=== PATIENT | female | born 1950 | race Caucasian/White ===

== ENCOUNTER 2017-12-07 10:14 | Inpatient (IN) | payer OTHER, MEDICARE ==
[~2017-12-07] VITALS: Ht 149.9 cm; Wt 78.9 kg
[~2017-12-07 10:14] MED LIST: BYSTOLIC5 M1 PO; CHILDREN'S ASPI81 M1 PO; EFFIENT10 M1 PO; HYDROXYCHLOROQ200 M2 PO; LEVOXYL50 MCG PO; PAXIL10 M1 PO; PRALUENT P75 MG/1 ML INJ; TYLENOL #31 TAB PO
--- NOTE | 2017-12-07 10:25 | ED GI/GU/ABDOMINAL COMPLAINT ---
History of Present Illness General Chief Complaint: General Adult Stated Complaint: BIBA ?GI BLEED Source: patient Exam Limitations: no limitations Vital Signs & Intake/Output Vital Signs & Intake/Output Vital Signs Date Time Temp Pulse Resp B/P B/P Pulse O2 O2 Flow FiO2 Mean Ox Delivery Rate 12/07 1042 90 164/72 12/07 1025 99 Room Air 12/07 1022 98.0 98 18 164/72 99 Room Air Allergies Coded Allergies: Iodinated Contrast- Oral and IV Dye (RASH 12/07/17) atorvastatin (UNKNOWN 12/07/17) celecoxib (UNKNOWN 12/07/17) ciprofloxacin (UNKNOWN 12/07/17) erythromycin base (UNKNOWN 12/07/17) ezetimibe (From ZETIA) (muscle pain 10/01/16) rofecoxib (From VIOXX) (? 06/24/17) sucralfate (UNKNOWN 12/07/17) omeprazole (INTERACTS WITH OTHER MEDS 12/07/17) Uncoded Allergies: BANDAIDS (Intermediate, RASH 06/24/17) Reconcile Medications Alirocumab (Praluent Pen) 75 MG/ML PEN.INJCTR 75 MG INJ Q2W CHOLESTEROL ( Reported) Aspirin (Children's Aspirin) 81 MG TAB.CHEW 1 TAB PO DAILY HEART/BLOOD ( Reported) Augmentin (Augmentin 500-125 Tablet) 500 MG-125 MG TABLET 500 MG PO BID pneumonia . Hydrocortisone 1 % CREAM..G. 1 MG TOP BID PRN skin allergy apply to affected area(s) Hydroxychloroquine Sulfate 200 MG TABLET 2 TAB PO DAILY OA (Reported) Levothyroxine Sodium (Levoxyl) 50 MCG TABLET 1 TAB PO DAILY THYROID (Reported ) Nebivolol HCl (Bystolic) 5 MG TABLET 1 TAB PO DAILY HEART (Reported) Omeprazole 40 MG CAPSULE.DR 1 CAP PO DAILY antacid . Paroxetine HCl 30 MG TABLET 30 MG PO DAILY MENTAL HEALTH (Reported) Triage Nurses Notes Reviewed? yes ? N Is pt currently ? No Onset: Abrupt Duration: hour(s): (FEW) Timing: multiple episodes today Activities at Onset: rest Prior Abdominal Problems: none No Modifying Factors: none Associated Symptoms: fatigue, nausea/vomiting HPI: This is a 67-year-old female with history of coronary disease status post 2 stents on aspirin and Effient, also significant alcohol consumption with 4-5 glasses of wine daily presents from home via EMS for chief complaint of abdominal cramping nausea vomiting and 2 episodes of coffee-ground emesis. She states one happened at around 2:00 this morning and then one around 9 AM. She states they were not large amounts, not friendly bloody but looked like coffee grounds. Abdominal cramping and nausea have since resolved. She thinks she might of eaten some undercooked meats last night. She also had her regular wine at night. No history of peptic ulcer disease esophageal varices. No recent vomiting until today. She last had a colonoscopy approximate 5 years ago which was reported as normal. She gets it done. No family history of colon cancer. She states she just wants to make sure everything is okay. She denies any chest pain or shortness of breath today. She did feel lightheaded earlier. She follows up with Dr. Gen Dudley cardiology and sees Dr. Reinoso her primary care. Past History Travel History Traveled to [place] past 21 day No Medical History Any Pertinent Medical History? see below for history Neurological: NONE EENT: NONE Cardiovascular: hypertension, hyperlipidemia, myocardial infarction Respiratory: NONE Gastrointestinal: NONE Hepatic: NONE Renal: NONE Musculoskeletal: NONE Psychiatric: NONE Endocrine: NONE Blood Disorders: SWEET'S SYNDROME VASCULITIS SLE Cancer(s): NONE Pneumonia Vaccine: 08/24/06 Surgical History Surgical History: appendectomy, hysterectomy, laminectomy, CARDIAC CATH (2011) 2 STENTS, BROKEN ANKLE, THYROGLOSSAL DUCT REMOVAL Psychosocial History What is your primary language Sinhala Tobacco Use: Current Daily Use Daily Tobacco Use Amount/Type: => 5 Cigarettes daily ETOH Use: heavy use (4-5 DRINKS PER DAY) Family History Hx Contributory? No Review of Systems Review of Systems Constitutional: Denies: chills, fever. GI: Reports: abdominal pain, nausea, vomiting. Physical Exam Physical Exam General Appearance: well developed/nourished, alert, awake, mild distress Head: atraumatic, normal appearance Eyes: Bilateral: normal appearance, PERRL, EOMI. Ears, Nose, Throat, Mouth: hearing grossly normal, moist mucous membrane Neck: normal inspection, supple, full range of motion Respiratory: normal breath sounds, chest non-tender, no respiratory distress Cardiovascular: regular rate/rhythm Peripheral Pulses: 2+ radial (R), 2+ radial (L) Gastrointestinal: normal bowel sounds, soft, non-tender Rectal: DARK BROWN OB POSITIVE Back: normal inspection, normal range of motion Extremities: normal range of motion Neurologic/Psych: no motor/sensory deficits, awake, alert, oriented x 3 Skin: intact, normal color, warm/dry Core Measures ACS in differential dx? No Sepsis Present: No Sepsis Focused Exam Completed? No Progress Differential Diagnosis: peptic ulcer, PUD/GERD, GASTRITIS, VARICIES Plan of Care: Orders Procedure Date/time Status Nothing by Mouth 12/07 D Active LACTIC ACID 12/07 1331 Active ED Holding Orders 12/07 1219 Active Admit to inpatient 12/07 1219 Active ED Holding Orders 12/07 1215 Active Vital Signs 12/07 1215 Active Code Status 12/07 1215 Active MISTAKE 12/07 1039 Active TROPONIN LEVEL 12/07 1031 Complete PARTIAL THROMBOPLASTIN TIME 12/07 1031 Complete PROTHROMBIN TIME 12/07 1031 Complete LIPASE 12/07 1031 Complete LACTIC ACID 12/07 1031 Complete ETHANOL 12/07 1031 Complete COMPREHENSIVE METABOLIC PANEL 12/07 1031 Complete CBC WITHOUT DIFFERENTIAL 12/07 1031 Complete TYPE & SCREEN (NOT X-MATCH) 12/07 1031 Complete EKG 12/07 1022 Active Current Medications Sig/Delaney Start time Last Medication Dose Stop Time Status Admin Sodium Chloride 1,000 ML BOLUS ONE 12/07 1200 AC 12/07 (Normal Saline 0.9%) 12/07 1259 1211 Laboratory Tests 12/07/17 1100: Anion Gap 13, Estimated GFR > 60, BUN/Creatinine Ratio 76.7 H, Glucose 159 H, Lactic Acid 1.6, Calcium 8.3 L, Total Bilirubin 0.2, AST 17, ALT 36, Alkaline Phosphatase 46, Troponin I 0.02, Total Protein 5.5 L, Albumin 3.0 L, Globulin 2.5, Albumin/Globulin Ratio 1.2, Lipase 78, PT 13.3 H, INR 1.27 H, APTT 21 L, CBC w Diff NO MAN DIFF REQ, RBC 2.83 L, MCV 96.1, MCH 32.6 H, RDW 13.8, MPV 8.6, Gran % 69.3, Lymphocytes % 19.7 L, Monocytes % 9.0, Eosinophils % 1.7, Basophils % 0.3, Absolute Granulocytes 7.6 H, Absolute Lymphocytes 2.2, Absolute Monocytes 1.0 H, Absolute Eosinophils 0.2, Absolute Basophils 0, PUBS MCHC 33.9, Serum Alcohol < 10.0 POSITIVE ORTHOSTATICS, NO FURTHER BLEEDING IN ED. SHE FELT LIGHTHEADED UPON STANDING. IV PROTONIX, FLUIDS GIVEN. D/W DR ELMORE WHO WILL SEE HER IN CONSULTATION. HOSPITALIST PAGED. Initial ED EKG: NSR, pvc Rhythm Strip: normal sinus rhythm Departure Departure Time of Disposition: 1220 Disposition: STILL A PATIENT Condition: Stable Clinical Impression Primary Impression: GI bleed Secondary Impressions: Anemia Referrals: Kemar FERNANDEZ,Tim Baer (PCP/Family) Toney FERNANDEZ,Gen Jarvis Departure Forms: Customer Survey General Discharge Information Prescriptions: Current Visit Scripts Augmentin (Augmentin 500-125 Tablet) 500 MG PO BID #11 TAB . Omeprazole 1 CAP PO DAILY #30 CAP . Hydrocortisone 1 MG TOP BID PRN skin allergy #30 GM apply to affected area(s) Admission Note Spoke With: Aiden FERNANDEZ,Leyda Documentation of Exam: Documentation of any treatments & extenuating circumstances including Concerns Regarding Discharge (functional status, medication knowledge or non-compliance, living conditions, etc.) that warrant an admission rather than observation: [NPO , IV FLUIDS, PROTONIX IV, GI CONSULT DR ELMORE, HOLD EFFIENT, CIWA MONITORING, POSSIBLE ENDOSCOPY, TRANSFUSE IF NECESSARY]
[2017-12-07 11:16] LABS: ABSOLUTE BASOPHIL COUNT 0 /CUMM (0.0-0.2); ABSOLUTE EOSINOPHIL COUNT 0.2 /CUMM (0.0-0.7); ABSOLUTE GRANULOCYTE CT 7.6 /CUMM (1.4-6.5); ABSOLUTE LYMPH COUNT 2.2 /CUMM (1.2-3.4); BASOPHIL % 0.3 % (0.0-2.0); EOSINOPHIL % 1.7 % (0-5); GRANULOCYTE % 69.3 % (42.2-75.2); HEMATOCRIT 27.2 % (37-47); MEAN CORPUSCULAR HGB 32.6 PG (27.0-31.0); MEAN CORPUSCULAR HGB CONC 33.9 G/DL (33.0-37.0); MEAN CORPUSCULAR VOLUME 96.1 FL (81.0-99.0); MEAN PLATELET VOLUME 8.6 FL (7.4-10.4); PLATELET COUNT 231 /CUMM (130-400); RBC DISTRIBUTION WIDTH 13.8 % (11.5-14.5); RED BLOOD CELL CT 2.83 /CUMM (4.20-5.40)
[2017-12-07 11:24] LABS: PT 13.3 SEC (9.4-12.5); PTT 21 SEC (25-37)
[2017-12-07] MEDS ORDERED: PAROXETINE HCL30 M1 PO (12:27)
--- NOTE | 2017-12-07 13:07 | History & Physical ---
Ana FERNANDEZ,[place] 12/07/17 1307: General Information and HPI MD Statement: I have seen and personally examined NATHANIEL FELIX and documented this H&P. The patient is a 67 year old F who presented with a patient stated chief complaint of [coffee ground emesis]. Source of Information: patient Exam Limitations: no limitations History of Present Illness: This patient is 67-year-old female with history of coronary disease status post 2 stents on aspirin and Effient, hypertension, hyperlipidemia, myocardial infarction, Sweet syndrome vasculitis, and SLE who presents from home via EMS with chief complaint of abdominal cramping,nausea, vomiting and 2 episodes of coffee-ground emesis which occures around 2 AM and around 9 AM this morning. Vomitus were small amounts, and dark colored like coffee grounds. Abdominal cramping and nausea have since resolved. She denies chest pain or shortness of breath, palpitations, or syncope. She did feel lightheaded earlier. She had a normal BM this am that was not bloody. She reports significant alcohol consumption of 4-5 glasses of wine daily. No history of peptic ulcer disease or esophageal varices or previous GI bleed. Her last colonoscopy was approximate 5 years ago which was reported as normal except for hemorrhoids. No family history of colon or gastric cancer. She follows up with Dr. Dudley cardiology and Dr. Reinoso for her primary care. Allergies/Medications Allergies: Coded Allergies: Iodinated Contrast- Oral and IV Dye (RASH 12/07/17) atorvastatin (UNKNOWN 12/07/17) celecoxib (UNKNOWN 12/07/17) ciprofloxacin (UNKNOWN 12/07/17) erythromycin base (UNKNOWN 12/07/17) ezetimibe (From ZETIA) (muscle pain 10/01/16) rofecoxib (From VIOXX) (? 06/24/17) sucralfate (UNKNOWN 12/07/17) omeprazole (INTERACTS WITH OTHER MEDS 12/07/17) Uncoded Allergies: BANDAIDS (Intermediate, RASH 06/24/17) Home Med list Alirocumab (Praluent Pen) 75 MG/ML PEN.INJCTR 75 MG INJ Q2W CHOLESTEROL ( Reported) Aspirin (Children's Aspirin) 81 MG TAB.CHEW 1 TAB PO DAILY HEART/BLOOD ( Reported) Hydroxychloroquine Sulfate 200 MG TABLET 2 TAB PO DAILY OA (Reported) Levothyroxine Sodium (Levoxyl) 50 MCG TABLET 1 TAB PO DAILY THYROID (Reported ) Nebivolol HCl (Bystolic) 5 MG TABLET 1 TAB PO DAILY HEART (Reported) Paroxetine HCl 30 MG TABLET 30 MG PO DAILY MENTAL HEALTH (Reported) Prasugrel HCl (Effient) 10 MG TABLET 1 TAB PO DAILY BLOOD THINNER (Reported) Compliance With Home Meds: GOOD Past History Travel History Traveled to [place] past 21 day No Medical History Neurological: NONE EENT: NONE Cardiovascular: hypertension, hyperlipidemia, myocardial infarction Respiratory: NONE Gastrointestinal: NONE Hepatic: NONE Renal: NONE Musculoskeletal: NONE Psychiatric: NONE Endocrine: NONE Blood Disorders: SWEET'S SYNDROME VASCULITIS SLE Cancer(s): NONE Surgical History Surgical History: appendectomy, hysterectomy, laminectomy, CARDIAC CATH (2004) 2 STENTS BROKEN ANKLE THYROGLOSSAL DUCT REMOVAL Past Family/Social History Psychosocial History ETOH Use: heavy use (4-5 DRINKS PER DAY) Review of Systems Review of Systems Constitutional: Reports: no symptoms. Exam & Diagnostic Data Last 24 Hrs of Vital Signs/I&O Vital Signs Date Time Temp Pulse Resp B/P B/P Pulse O2 O2 Flow FiO2 Mean Ox Delivery Rate 12/07 1541 98.7 94 18 143/59 99 Room Air 12/07 1042 90 164/72 12/07 1025 99 Room Air 12/07 1022 98.0 98 18 164/72 99 Room Air Intake & Output 12/07 1600 12/07 0800 12/07 0000 Intake Total 200 Output Total Balance 200 Intake, IV 200 Patient 173 lb Weight Weight Reported by Patient Measurement Method Physical Exam General Appearance Alert, Oriented X3, Cooperative, No Acute Distress Skin pale Skin Temp/Moisture Exam: Warm/Dry HEENT PERRLA, EOMI, dry mucous membranes Neck Supple, No JVD Lungs Clear to Auscultation, Normal Air Movement Abdomen Normal Bowel Sounds, Soft, No Tenderness Extremities No Edema, Normal Pulses Last 24 Hrs of Labs/Boni: Laboratory Tests 12/07/17 1540: CBC w Diff Pending, WBC Pending, RBC Pending, Hgb Pending, Hct Pending, MCV Pending, MCH Pending, RDW Pending, Plt Count Pending, MPV Pending, PUBS MCHC Pending 12/07/17 1126: Lactic Acid Cancelled 12/07/17 1100: Anion Gap 13, Estimated GFR > 60, BUN/Creatinine Ratio 76.7 H, Glucose 159 H, Lactic Acid 1.6, Calcium 8.3 L, Total Bilirubin 0.2, AST 17, ALT 36, Alkaline Phosphatase 46, Troponin I 0.02, Total Protein 5.5 L, Albumin 3.0 L, Globulin 2.5, Albumin/Globulin Ratio 1.2, Lipase 78, PT 13.3 H, INR 1.27 H, APTT 21 L, CBC w Diff NO MAN DIFF REQ, RBC 2.83 L, MCV 96.1, MCH 32.6 H, RDW 13.8, MPV 8.6, Gran % 69.3, Lymphocytes % 19.7 L, Monocytes % 9.0, Eosinophils % 1.7, Basophils % 0.3, Absolute Granulocytes 7.6 H, Absolute Lymphocytes 2.2, Absolute Monocytes 1.0 H, Absolute Eosinophils 0.2, Absolute Basophils 0, PUBS MCHC 33.9, Serum Alcohol < 10.0 Assessment/Plan Assessment: This patient is 67-year-old female with history of . Coronary artery to on aspirin and Effient, hypertension, hyperlipidemia, myocardial infarction, Sweet syndrome vasculitis, and SLE who presents from home via EMS with chief complaint of abdominal cramping,nausea, vomiting and 2 episodes of coffee-ground emesis which occures around 2 AM and around 9 AM this morning. Vomitus were small amounts, and dark colored like coffee grounds. Abdominal cramping and nausea have since resolved. She denies chest pain or shortness of breath, palpitations , or syncope. Assessment 1. Upper GI bleed-r/o ulcers or varices in the background of anticoagulation with aspirin and effient 2. Coronary artery disease, hyperlipidemia, history of myocardial infarction 3. History of SLE and sweet syndrome Plan Admit to type and screen 2 units of blood maintain 2 large bore IVs at all times IV protonix daily Hold Effient and aspirin Gastroenterology consult-follow recommendations NPO for possible EGD in am IVF hydration with D5 1/2 NS or lactated ringers Check INR/ LFTs Repeat CBC/BEP in am-transfuse if needed Monitor CIWA protocol Follow attending recommendations Alps for DVT ppx FC Mild pain pathway-avoid NSAIDs As Ranked By This Provider Problem List: 1. GI bleed Core Measures/Misc (08/10) Acute Coronary Syndrome ACS Diagnosis: No Congestive Heart Failure Congestive Heart Failure Diagnosis No Cerebrovascular Accident CVA/TIA Diagnosis: No VTE (View Protocol) VTE Risk Factors Acute Medical Illness No Mechanical VTE Prophylaxis d/t N/A MechProphylax Ordered No VTE Pharm Prophylaxis d/t Bleeding (Active) Sepsis (View protocol) Sepsis Present: No Resident Review Statement Resident Statement: examined this patient Other Findings: see hPI Aiden FERNANDEZ,Leyda 12/07/17 1357: Attending MD Review Statement Attending Statement Attending MD Statement: examined this patient, discuss w/resident/PA/SUPERINTENDENT FISH HATCHERY, agreed w/resident/PA/SUPERINTENDENT [employer] HATCH[employer], reviewed EMR data (avail), discussed with nursing, amended to note Attending Assessment/Plan: Patient is a 67-year-old female with medical history significant for coronary artery disease status post stent placement in 2011. She is on dual antiplatelet therapy with aspirin and Effient. She also admits to daily consumption of 4-5 glasses of wine. Patient also gives a history of aortic stenosis and states that she has been worked up for possible valve surgery. She presented to the emergency room after 2 episodes of coffee-ground emesis. First episode upon earlier this morning around 2 AM and the second 1 around 9 AM. She reports that there was no blood present but the emesis was dark in color. Symptoms are preceded by abdominal cramping has since resolved. She denies any similar episodes in the past. She reports having a colonoscopy about 5 years ago and was told that she is due for now. In the emergency room she was found hemodynamically stable with no orthostatic changes although she did complain of some dizziness when being evaluated. Laboratory data showed hemoglobin of 9.2. Comparison hemoglobin is from 2015 I was 13.9 at the time. She had a leukocytosis which is probably reactive. She also has elevated BUN in the 40s with a normal creatinine level. She was then referred to the inpatient medical service for further follicular management. Upon the patient resting comfortably and not in any acute distress. She denies any similar symptoms in the past. Denies history of abdominal pain or cramping. She had no jugular venous distention. Heart sounds are regular with a 3/6 systolic murmur. She has good entry bilaterally and lungs are clear to auscultation. Abdomen is soft and nontender with no epigastric tenderness. She has no peripheral edema. Patient is currently hemodynamically stable.GI bleeding was likely brought her on by her dual antiplatelet therapy and chronic alcohol use. Problems: 1. Query upper GI bleed. 2. Anemia; query chronicity 3. Coronary artery disease status post stent placement; on dual antiplatelet therapy with aspirin and Effient. 4. Aortic stenosis; being evaluated for possible valve surgery. 5. History of significant alcohol use. Plan: -Admit to inpatient General medical service. -Trend hemoglobin level every 8 hours. Transfuse to keep hemoglobin level greater than 8. -Type and screen to PRBCs. Maintain 2 large-bore IV lines. -Check iron studies B12 and folic acid level. -Keep n.p.o. pending GI evaluation. Hydrate with D5 half normal saline at 60 cc an hour. -Hold dual antiplatelet therapy for now. -Intravenous PPI therapy daily. -Notify patient's systems software designer service of her admission to [facility] -DVT prophylaxis with bilateral compression devices. -Given her history of significant alcohol use recommend monitoring closely with CIWA protocol. Hold off benzodiazepine therapy for now.
[2017-12-07 15:58] LABS: ABSOLUTE BASOPHIL COUNT 0 /CUMM (0.0-0.2); ABSOLUTE EOSINOPHIL COUNT 0.1 /CUMM (0.0-0.7); ABSOLUTE GRANULOCYTE CT 9.2 /CUMM (1.4-6.5); ABSOLUTE LYMPH COUNT 2.8 /CUMM (1.2-3.4); ABSOLUTE MONOCYTE COUNT 1.1 /CUMM (0.10-0.60); BASOPHIL % 0.2 % (0.0-2.0); EOSINOPHIL % 0.9 % (0-5); GRANULOCYTE % 69.5 % (42.2-75.2); HEMATOCRIT 25.3 % (37-47); MEAN CORPUSCULAR HGB 32.1 PG (27.0-31.0); MEAN CORPUSCULAR HGB CONC 33.3 G/DL (33.0-37.0); MEAN CORPUSCULAR VOLUME 96.4 FL (81.0-99.0); MEAN PLATELET VOLUME 8.3 FL (7.4-10.4); PLATELET COUNT 217 /CUMM (130-400); RBC DISTRIBUTION WIDTH 13.7 % (11.5-14.5); RED BLOOD CELL CT 2.62 /CUMM (4.20-5.40); WHITE BLOOD CELL COUNT 13.3 /CUMM (4.8-10.8)
[2017-12-07 16:23] VITALS: BP 130/56
--- NOTE | 2017-12-07 16:33 | PN- Gastroenterology ---
Assessment/Plan Assessment/Recommendations: Patient is a 67-year-old lady who had supper about 9 PM last night and then went to bed. She was awoken at 2 AM in the morning with a need to go to the bathroom and while in the bathroom she had a sudden onset of vomiting. On the first emesis she noticed that there was fairly bright and coffee-ground material in the emesis. This recurred one more time. She has not had any additional symptoms such as abdominal pain and lightheadedness fevers chills bright red blood per rectum or melena. She denies any similar episodes in the past. She reports having a colonoscopy about 5 years ago and was told that she is due for now. In the emergency room she was found hemodynamically stable with no orthostatic changes although she did complain of some dizziness when being evaluated. Laboratory data showed hemoglobin of 9.2. Comparison hemoglobin is from 2014 I was 13.9 at the time. She had a leukocytosis which is probably reactive. She also has elevated BUN in the 40s with a normal creatinine level. She was then referred to the inpatient medical service for further follicular management. Patient was seen in ER room 9, and was resting comfortably and not in any acute distress. She denies any similar symptoms in the past. Denies history of abdominal pain or cramping. She had no jugular venous distention. Heart sounds are regular with a 3/6 systolic murmur. She has good entry bilaterally and lungs are clear to auscultation. Abdomen is soft and nontender with no epigastric tenderness. She has no peripheral edema. Patient has a significant alcohol use with 3-5 glasses of wine every night. She has not had any problems related to this alcohol use in the past. Subjective Subjective: No shortness of breath chest pains headache loss of vision presyncope or syncope. Objective Vital Signs and I&Os Vital Signs x Date Time Temp Pulse Resp B/P B/P Pulse O2 O2 Flow FiO2 Mean Ox Delivery Rate 12/07 1623 98.4 100 19 130/56 98 Room Air 12/07 1541 98.7 94 18 143/59 99 Room Air 12/07 1042 90 164/72 12/07 1025 99 Room Air 12/07 1022 98.0 98 18 164/72 99 Room Air Intake & Output 12/07 1600 12/07 0400 12/06 1600 12/06 0400 12/05 1600 12/05 0400 Intake Total 200 Output Total Balance 200 Intake, IV 200 Patient 173 lb Weight Weight Reported by Patient Measurement Method Physical Exam: General Appearance Alert, Oriented X3, Cooperative, No Acute Distress Skin pale Skin Temp/Moisture Exam: Warm/Dry HEENT PERRLA, EOMI, dry mucous membranes Neck Supple, No JVD Lungs Clear to Auscultation, Normal Air Movement Abdomen Normal Bowel Sounds, Soft, No Tenderness Extremities No Edema, Normal Pulses. No asterixis, palmar erythema or spider angiomata. No jaundice or other stigmata of chronic liver disease. Results Pertinent Lab Results: x Laboratory Tests 12/07 12/07 1540 1126 Chemistry Lactic Acid Cancelled Hematology CBC w Diff NO MAN DIFF REQ WBC (4.8 - 10.8 /CUMM) 13.3 H RBC (4.20 - 5.40 /CUMM) 2.62 L Hgb (12.0 - 16.0 G/DL) 8.4 L Hct (37 - 47 %) 25.3 L MCV (81.0 - 99.0 FL) 96.4 MCH (27.0 - 31.0 PG) 32.1 H RDW (11.5 - 14.5 %) 13.7 Plt Count (130 - 400 /CUMM) 217 MPV (7.4 - 10.4 FL) 8.3 Gran % (42.2 - 75.2 %) 69.5 Lymphocytes % (20.5 - 51.1 %) 21.1 Monocytes % (1.7 - 9.3 %) 8.3 Eosinophils % (0 - 5 %) 0.9 Basophils % (0.0 - 2.0 %) 0.2 Absolute Granulocytes (1.4 - 6.5 /CUMM) 9.2 H Absolute Lymphocytes (1.2 - 3.4 /CUMM) 2.8 Absolute Monocytes (0.10 - 0.60 /CUMM) 1.1 H Absolute Eosinophils (0.0 - 0.7 /CUMM) 0.1 Absolute Basophils (0.0 - 0.2 /CUMM) 0 PUBS MCHC (33.0 - 37.0 G/DL) 33.3 12/07 1100 Chemistry Sodium (137 - 145 mmol/L) 143 Potassium (3.5 - 5.1 mmol/L) 4.3 Chloride (98 - 107 mmol/L) 107 Carbon Dioxide (22 - 30 mmol/L) 23 Anion Gap (5 - 16) 13 BUN (7 - 17 mg/dL) 46 H Creatinine (0.5 - 1.0 mg/dL) 0.6 Estimated GFR (>60 ml/min) > 60 BUN/Creatinine Ratio (7 - 25 %) 76.7 H Glucose (65 - 99 mg/dL) 159 H Lactic Acid (0.7 - 2.1 mmol/L) 1.6 Calcium (8.4 - 10.2 mg/dL) 8.3 L Total Bilirubin (0.2 - 1.3 mg/dL) 0.2 AST (14 - 36 U/L) 17 ALT (9 - 52 U/L) 36 Alkaline Phosphatase (<127 U/L) 46 Troponin I (< 0.11 ng/ml) 0.02 Total Protein (6.3 - 8.2 g/dL) 5.5 L Albumin (3.5 - 5.0 g/dL) 3.0 L Globulin (1.9 - 4.2 gm/dL) 2.5 Albumin/Globulin Ratio (1.1 - 2.2 %) 1.2 Lipase (23 - 300 U/L) 78 Coagulation PT (9.4 - 12.5 SEC) 13.3 H INR (0.90 - 1.19) 1.27 H APTT (25 - 37 SEC) 21 L Hematology CBC w Diff NO MAN DIFF REQ WBC (4.8 - 10.8 /CUMM) 11.0 H RBC (4.20 - 5.40 /CUMM) 2.83 L Hgb (12.0 - 16.0 G/DL) 9.2 L Hct (37 - 47 %) 27.2 L MCV (81.0 - 99.0 FL) 96.1 MCH (27.0 - 31.0 PG) 32.6 H RDW (11.5 - 14.5 %) 13.8 Plt Count (130 - 400 /CUMM) 231 MPV (7.4 - 10.4 FL) 8.6 Gran % (42.2 - 75.2 %) 69.3 Lymphocytes % (20.5 - 51.1 %) 19.7 L Monocytes % (1.7 - 9.3 %) 9.0 Eosinophils % (0 - 5 %) 1.7 Basophils % (0.0 - 2.0 %) 0.3 Absolute Granulocytes (1.4 - 6.5 /CUMM) 7.6 H Absolute Lymphocytes (1.2 - 3.4 /CUMM) 2.2 Absolute Monocytes (0.10 - 0.60 /CUMM) 1.0 H Absolute Eosinophils (0.0 - 0.7 /CUMM) 0.2 Absolute Basophils (0.0 - 0.2 /CUMM) 0 PUBS MCHC (33.0 - 37.0 G/DL) 33.9 Toxicology Serum Alcohol (<10 MG/DL) < 10.0 Imaging/Other Studies: In summary we have a 67-year-old lady with significant alcohol intake presenting with a sudden onset of coffee-ground emesis. Her hematocrit has dropped by a little over 10 points compared with 3 years ago. She is hemodynamically stable. Patient states that approximately 5 years ago she had a colonoscopy and upper endoscopy during which exam no significant findings were reported to have. He is were not done at [facility]. Overall patient does not seem to have significant liver disease, and it is highly unlikely that this episode of upper GI bleeding is due to esophageal or gastric variceal bleeding. Please admit to medical floor, nothing by mouth overnight For EGD in the morning. PPI. Hold antiplatelet medications. Repeat hematocrit INR LFTs in the morning.
[2017-12-07 20:00] VITALS: BP 132/62
--- NOTE | 2017-12-07 21:06 | Admission Certification ---
Admission Certification Certification Statement - As attending physician, I certify that at the time of - admission, based on clinical presentation, severity of - symptoms, need for further diagnostic testing and - therapeutic interventions, and risk of adverse outcomes - without in-hospital treatment, in my clinical assessment, - this patient requires an acute hospital stay for a minimum - of two nights or longer. I have also considered psychsocial - factors such as support system, advanced age, financial - issues, cognitive issues, and failed out-patient treatments, - past re-admission history, safety of patient, and lack of - compliance as applicable. Specific rationale supporting this admission is: Hospitalization is required for management of his gastrointestinal bleeding. Patient may require blood transfusion and will certainly require endoscopic evaluation
[2017-12-08] VITALS (8 sets, daily range): BP systolic 120–1338; BP diastolic 54–68
--- NOTE | 2017-12-08 07:53 | PN- Housestaff ---
GeoffreyMayra 12/08/17 0750: Subjective Follow-up For: Upper GI bleed. Anemia CAD s/p Stent on dual antiPlt Aortic stenosis History of significant alcohol use. Subjective: No overnight event. Patient is going for EGD today AM Review of Systems Constitutional: Reports: see HPI. Objective Last 24 Hrs of Vital Signs/I&O Vital Signs Date Time Temp Pulse Resp B/P B/P Pulse O2 O2 Flow FiO2 Mean Ox Delivery Rate 12/08 0408 98.2 95 20 124/54 93 12/08 0200 98.2 100 20 138/62 12/08 0003 98.2 100 20 138/62 93 12/07 2000 98.4 99 18 132/62 94 Room Air 12/07 1623 98.4 100 19 130/56 98 Room Air 12/07 1541 98.7 94 18 143/59 99 Room Air 12/07 1042 90 164/72 12/07 1025 99 Room Air 12/07 1022 98.0 98 18 164/72 99 Room Air Intake & Output 12/08 0800 12/08 0000 12/07 1600 Intake Total 200 Output Total Balance 200 Intake, IV 200 Number 1 Bowel Movements Patient 78.925 kg 78.471 kg Weight Weight Reported by Patient Measurement Method Physical Exam General Appearance: Alert, Oriented X3, Cooperative, No Acute Distress Cardiovascular: Regular Rate Lungs: Clear to Auscultation, Normal Air Movement Abdomen: Normal Bowel Sounds, Soft, No Tenderness Neurological: Normal Speech Extremities: No Edema, Normal Pulses Current Medications: Current Medications Sig/Delaney Start time Last Medication Dose Route Stop Time Status Admin Acetaminophen 650 MG Q6P PRN 12/07 1315 AC 12/08 PO 0002 Dextrose/Sodium 1,000 ML Q16H 12/07 1600 AC 12/07 Chloride IV 1644 Hydromorphone HCl 0.6 MG Q4P PRN 12/07 1500 AC IV Levothyroxine Sodium 0.05 MG DAILY AC 12/08 0700 AC 12/08 PO 0604 Lorazepam 0 Q1P PRN 12/07 1330 DC IV Ondansetron HCl 0 .STK-MED ONE 12/07 1053 DC .ROUTE Pantoprazole Sodium 40 MG DAILY 12/08 1000 AC IV Pantoprazole Sodium 0 .STK-MED ONE 12/07 1053 DC IV Pantoprazole Sodium 40 MG ONCE ONE 12/07 1030 DC 12/07 IV 12/07 1031 1103 Sodium Chloride 1,000 ML .[id number] 12/07 1315 DC 12/07 IV 1449 Sodium Chloride 1,000 ML BOLUS ONE 12/07 1200 DC 12/07 IV 12/07 1259 1211 Sodium Chloride 1,000 ML BOLUS ONE 12/07 1045 DC 12/07 IV 12/07 1144 1103 Last 24 Hrs of Lab/Boni Results Last 24 Hrs of Labs/Mics: Laboratory Tests 12/08/17 0625: Sodium Pending, Potassium Pending, Chloride Pending, Carbon Dioxide Pending, Anion Gap Pending, BUN Pending, Creatinine Pending, BUN/Creatinine Ratio Pending , Iron Pending, Total Bilirubin Pending, Direct Bilirubin Pending, AST Pending, ALT Pending, Alkaline Phosphatase Pending, Total Protein Pending, Albumin Pending, Vitamin B12 Pending, PT Pending, INR Pending, CBC w Diff Pending, WBC Pending, RBC Pending, Hgb Pending, Hct Pending, MCV Pending, MCH Pending, RDW Pending, Plt Count Pending, MPV Pending, PUBS MCHC Pending 12/07/17 1540: CBC w Diff NO MAN DIFF REQ, RBC 2.62 L, MCV 96.4, MCH 32.1 H, RDW 13.7, MPV 8.3, Gran % 69.5, Lymphocytes % 21.1, Monocytes % 8.3, Eosinophils % 0.9, Basophils % 0.2, Absolute Granulocytes 9.2 H, Absolute Lymphocytes 2.8, Absolute Monocytes 1.1 H, Absolute Eosinophils 0.1, Absolute Basophils 0, PUBS MCHC 33.3 12/07/17 1126: Lactic Acid Cancelled 12/07/17 1100: Anion Gap 13, Estimated GFR > 60, BUN/Creatinine Ratio 76.7 H, Glucose 159 H, Lactic Acid 1.6, Calcium 8.3 L, Total Bilirubin 0.2, AST 17, ALT 36, Alkaline Phosphatase 46, Troponin I 0.02, Total Protein 5.5 L, Albumin 3.0 L, Globulin 2.5, Albumin/Globulin Ratio 1.2, Lipase 78, PT 13.3 H, INR 1.27 H, APTT 21 L, CBC w Diff NO MAN DIFF REQ, RBC 2.83 L, MCV 96.1, MCH 32.6 H, RDW 13.8, MPV 8.6, Gran % 69.3, Lymphocytes % 19.7 L, Monocytes % 9.0, Eosinophils % 1.7, Basophils % 0.3, Absolute Granulocytes 7.6 H, Absolute Lymphocytes 2.2, Absolute Monocytes 1.0 H, Absolute Eosinophils 0.2, Absolute Basophils 0, PUBS MCHC 33.9, Serum Alcohol < 10.0 Assessment/Plan Assessment: Ms. Pittman is 67-year-old female with history of Coronary artery to on aspirin and Effient s/p stent placement in 2011, hypertension, hyperlipidemia, myocardial infarction, Sweet syndrome vasculitis, and SLE who presents from home via EMS with chief complaint of abdominal cramping,nausea, vomiting and 2 episodes of coffee-ground emesis. Vomitus were small amounts, and dark colored like coffee grounds. 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 She denied chest pain or shortness of breath, palpitations, or syncope on presentation. However she admitted that she sometimes got chest discomfort/ pressure and addressed it to her vasculitis. Problem list and hospital course: 1. Upper GI bleed-r/o ulcers or varices in the background of anticoagulation with aspirin and effient 2. Coronary artery disease, hyperlipidemia, history of myocardial infarction 3. History of SLE and sweet syndrome - type and screened for prep of 1U PRBC - maintain 2 large bore IVs at all times - IV protonix daily, pending GI scope today - Hold Effient and aspirin, pending cardiology consult. - IVF hydration continued while NPO. - Check INR/ LFTs - Repeat CBC/BEP in am-transfuse if needed - Monitor CIWA protocol Alps for DVT ppx NPO FC Problem List: 1. GI bleed 2. Nausea & vomiting 3. Anemia Pain Ratin Pain Location: NA Pain Goal: Remain pain free Pain Plan: NA Tomorrow's Labs & Rationales: CBC/BEP Renae Garcia 12/08/17 1340: Attending MD Review Statement Attending Statement Attending MD Statement: examined this patient, discuss w/resident/PA/ENTREPRENEURSHIP PROGRAM DIRECTOR, agreed w/resident/PA/ENTREPRENEURSHIP PROGRAM DIRECTOR, discussed with family, reviewed EMR data (avail), discussed with nursing, discussed with case mgmt, reviewed images, amended to note Attending Assessment/Plan: Patient is a 67-year-old female with medical history significant for coronary artery disease status post stent placement in 2011. She is on dual antiplatelet therapy with aspirin and Effient comes with anemia. Labs and vitals seen. Patient is currently hemodynamically stable. GI and cardio consulted. Patient had brief chest discomfort this am. Problems: 1. possible upper GI bleed. 2. Anemia of blood loss 3. Coronary artery disease status post stent placement; on dual antiplatelet therapy with aspirin and Effient. ?timing 4. Aortic stenosis; being evaluated for possible valve surgery. 5. History of significant alcohol use. Plan: -serial cbc monitoring, Hold dual antiplatelet therapy for now. Cardiology consult which recommend to stop effient. Obtain serial cardiac enzymes and EKGs. c/w PPI. -DVT prophylaxis with bilateral compression devices. -Given her history of significant alcohol use recommend monitoring closely with CIWA protocol. Hold off benzodiazepine therapy for now.
[2017-12-08 08:17] LABS: PT 12.8 SEC (9.4-12.5)
[2017-12-08 08:37] LABS: ABSOLUTE BASOPHIL COUNT 0.1 /CUMM (0.0-0.2); ABSOLUTE EOSINOPHIL COUNT 0.4 /CUMM (0.0-0.7); ABSOLUTE GRANULOCYTE CT 7.2 /CUMM (1.4-6.5); ABSOLUTE LYMPH COUNT 2.8 /CUMM (1.2-3.4); ABSOLUTE MONOCYTE COUNT 1.2 /CUMM (0.10-0.60); BASOPHIL % 0.5 % (0.0-2.0); EOSINOPHIL % 3.8 % (0-5); GRANULOCYTE % 61.9 % (42.2-75.2); MEAN CORPUSCULAR HGB 31.8 PG (27.0-31.0); MEAN CORPUSCULAR HGB CONC 32.9 G/DL (33.0-37.0); MEAN CORPUSCULAR VOLUME 96.8 FL (81.0-99.0); MEAN PLATELET VOLUME 8.6 FL (7.4-10.4); PLATELET COUNT 209 /CUMM (130-400); RBC DISTRIBUTION WIDTH 14.1 % (11.5-14.5); RED BLOOD CELL CT 2.28 /CUMM (4.20-5.40); WHITE BLOOD CELL COUNT 11.6 /CUMM (4.8-10.8)
--- NOTE | 2017-12-08 11:45 | Cons- Cardiology ---
General Information and HPI Consulting Request Date of Consult: 12/08/17 Requested By: Renae Garcia MD Reason for Consult: Chest pain, aortic stenosis, GI bleed Source of Information: patient, old records Exam Limitations: no limitations History of Present Illness: The patient is a 67-year-old woman with a past medical history of coronary artery disease (status post remote stenting 2 in 2011), aortic stenosis ( moderate severity), systemic lupus, hypertension, hyperlipidemia and Sweet syndrome vasculitis she presented to our hospital with symptoms of abdominal cramping and emesis of a coffee ground material with noted significant anemia. The patient states symptoms of abdominal discomfort had onset on the day prior to arrival; however, she did not seek immediate medical attention, hoping it would spontaneously resolve. As symptoms persisted and following her episode of emesis, she presented to our emergency room. The patient otherwise denied recent changes in her bowel habits including gross blood nor melena. From a cardiac standpoint, the patient states having chronic and episodic chest discomfort. Over several components to her symptoms, including positional discomfort as well as recurrent episodes of substernal pressure sensations with radiation to the back. These are mild to moderate in intensity and occasionally are reciprocated by physical activity such as carrying objects. There is no concurrent diaphoresis nor palpitations; however, she states dyspnea and fatigue. No other clear exacerbating or alleviating factors are noted. The patient had undergone nuclear stress testing approximately one year ago which demonstrated no evidence of infarct or ischemia., Recent outpatient echocardiography demonstrated moderate aortic stenosis which had progressed over the past year. The patient to undergo endoscopy; however, due to symptoms of chest discomfort was deferred. The patient states compliance with her medication regimen she consumes approximately 4-5 cups of wine per day Allergies/Medications Allergies: Coded Allergies: Iodinated Contrast- Oral and IV Dye (RASH 12/07/17) atorvastatin (UNKNOWN 12/07/17) celecoxib (UNKNOWN 12/07/17) ciprofloxacin (UNKNOWN 12/07/17) erythromycin base (UNKNOWN 12/07/17) ezetimibe (From ZETIA) (muscle pain 10/01/16) rofecoxib (From VIOXX) (? 06/24/17) sucralfate (UNKNOWN 12/07/17) omeprazole (INTERACTS WITH OTHER MEDS 12/07/17) Uncoded Allergies: BANDAIDS (Intermediate, RASH 06/24/17) Home Med List: Alirocumab (Praluent Pen) 75 MG/ML PEN.INJCTR 75 MG INJ Q2W CHOLESTEROL ( Reported) Aspirin (Children's Aspirin) 81 MG TAB.CHEW 1 TAB PO DAILY HEART/BLOOD ( Reported) Hydroxychloroquine Sulfate 200 MG TABLET 2 TAB PO DAILY OA (Reported) Levothyroxine Sodium (Levoxyl) 50 MCG TABLET 1 TAB PO DAILY THYROID (Reported ) Nebivolol HCl (Bystolic) 5 MG TABLET 1 TAB PO DAILY HEART (Reported) Paroxetine HCl 30 MG TABLET 30 MG PO DAILY MENTAL HEALTH (Reported) Prasugrel HCl (Effient) 10 MG TABLET 1 TAB PO DAILY BLOOD THINNER (Reported) Current Medications: Current Medications Sig/Delaney Start time Last Medication Dose Route Stop Time Status Admin Acetaminophen 650 MG Q6P PRN 12/07 1315 AC 12/08 PO 0002 Dextrose/Sodium 1,000 ML Q16H 12/07 1600 AC 12/08 Chloride IV 1115 Hydromorphone HCl 0.6 MG Q4P PRN 12/07 1500 AC IV Levothyroxine Sodium 0.05 MG DAILY AC 12/08 0700 AC 12/08 PO 0604 Lorazepam 0 Q1P PRN 12/07 1330 DC IV Pantoprazole Sodium 40 MG DAILY 12/08 1000 AC 12/08 IV 1114 Sodium Chloride 1,000 ML .[id number] 12/07 1315 DC 12/07 IV 1449 Sodium Chloride 1,000 ML BOLUS ONE 12/07 1200 DC 12/07 IV 12/07 1259 1211 Sodium Chloride 1,000 ML BOLUS ONE 12/07 1045 DC 12/07 IV 12/07 1144 1103 Review of Systems Review of Systems: The review of systems is negative for, palpitations nor lightheadedness; however , is positive for chest pain as above. The remainder of the 14 point review of systems is noncontributory with the exception of above. Past History Travel History Traveled to [place] past 21 day No Medical History Blood Transfusion Hx: No Neurological: NONE EENT: NONE Cardiovascular: hypertension, hyperlipidemia, myocardial infarction Respiratory: NONE Gastrointestinal: NONE Hepatic: NONE Renal: NONE Musculoskeletal: NONE Psychiatric: NONE Endocrine: NONE Blood Disorders: SWEET'S SYNDROME VASCULITIS SLE Cancer(s): NONE OCCUPATIONAL THERAPIST REHAB MANAGER/Reproductive: NONE Surgical History Surgical History: appendectomy, hysterectomy, laminectomy, CARDIAC CATH (2004) 2 STENTS BROKEN ANKLE THYROGLOSSAL DUCT REMOVAL Psychosocial History Where Do You Live? Home Smoking Status: Unknown If Ever Smoked ETOH Use: heavy use (4-5 DRINKS PER DAY) Exam & Diagnostic Data Vital Signs and I&O Vital Signs Date Time Temp Pulse Resp B/P B/P Pulse O2 O2 Flow FiO2 Mean Ox Delivery Rate 12/08 0803 97.9 96 20 120/58 94 Room Air 12/08 0600 98.2 220 64 1308/62 12/08 0408 98.2 95 20 124/54 93 12/08 0200 98.2 100 20 138/62 12/08 0003 98.2 100 20 138/62 93 12/07 2000 98.4 99 18 132/62 94 Room Air 12/07 1623 98.4 100 19 130/56 98 Room Air 12/07 1541 98.7 94 18 143/59 99 Room Air Intake & Output 12/08 1600 12/08 0800 12/08 0000 12/07 1600 12/07 0800 12/07 0000 Intake Total 450 200 Output Total Balance 450 200 Intake, IV 430 200 Intake, Oral 20 Number 1 Bowel Movements Patient 174 lb 174 lb 173 lb Weight Weight Reported by Patient Measurement Method Physical Exam: General: Nontoxic, no apparent distress. HEENT: Sclera and conjunctiva within normal limits, without xanthelasmas. Neck: Carotids 2+ without bruits. Respiratory: Clear to auscultation, air movement is good, without accessory respiratory muscle use. Heart: Regular rate and rhythm, without murmurs, without JVD. Abdomen: Soft, nontender, no masses, normoactive bowel sounds. Extremities: Without clubbing, cyanosis, without edema. Neuro: Nonfocal exam, strength, 5 out of 5 Skin: Within normal limits without lesions. Psych: Mood and affect: Normal Labs/Boni Results: Laboratory Tests 12/08 12/07 0625 1540 Chemistry Sodium (137 - 145 mmol/L) 147 H Potassium (3.5 - 5.1 mmol/L) 3.7 Chloride (98 - 107 mmol/L) 111 H Carbon Dioxide (22 - 30 mmol/L) 23 Anion Gap (5 - 16) 13 BUN (7 - 17 mg/dL) 22 H Creatinine (0.5 - 1.0 mg/dL) 0.6 Estimated GFR (>60 ml/min) > 60 BUN/Creatinine Ratio (7 - 25 %) 36.7 H Iron (37 - 170 ug/dL) 186 H Total Bilirubin (0.2 - 1.3 mg/dL) < 0.1 L Direct Bilirubin (< 0.4 mg/dL) 0 AST (14 - 36 U/L) 18 ALT (9 - 52 U/L) 35 Alkaline Phosphatase (<127 U/L) 42 Troponin I (< 0.11 ng/ml) 0.03 Total Protein (6.3 - 8.2 g/dL) 5.1 L Albumin (3.5 - 5.0 g/dL) 2.8 L Vitamin B12 (239 - 931 pg/mL) 599 Coagulation PT (9.4 - 12.5 SEC) 12.8 H INR (0.90 - 1.19) 1.22 H Hematology CBC w Diff NO MAN DIFF REQ NO MAN DIFF REQ WBC (4.8 - 10.8 /CUMM) 11.6 H 13.3 H RBC (4.20 - 5.40 /CUMM) 2.28 L 2.62 L Hgb (12.0 - 16.0 G/DL) 7.3 *L 8.4 L Hct (37 - 47 %) 22.0 L 25.3 L MCV (81.0 - 99.0 FL) 96.8 96.4 MCH (27.0 - 31.0 PG) 31.8 H 32.1 H RDW (11.5 - 14.5 %) 14.1 13.7 Plt Count (130 - 400 /CUMM) 209 217 MPV (7.4 - 10.4 FL) 8.6 8.3 Gran % (42.2 - 75.2 %) 61.9 69.5 Lymphocytes % (20.5 - 51.1 %) 23.8 21.1 Monocytes % (1.7 - 9.3 %) 10.0 H 8.3 Eosinophils % (0 - 5 %) 3.8 0.9 Basophils % (0.0 - 2.0 %) 0.5 0.2 Absolute Granulocytes (1.4 - 6.5 /CUMM) 7.2 H 9.2 H Absolute Lymphocytes (1.2 - 3.4 /CUMM) 2.8 2.8 Absolute Monocytes (0.10 - 0.60 /CUMM) 1.2 H 1.1 H Absolute Eosinophils (0.0 - 0.7 /CUMM) 0.4 0.1 Absolute Basophils (0.0 - 0.2 /CUMM) 0.1 0 PUBS MCHC (33.0 - 37.0 G/DL) 32.9 L 33.3 12/07 12/07 1126 1100 Chemistry Sodium (137 - 145 mmol/L) 143 Potassium (3.5 - 5.1 mmol/L) 4.3 Chloride (98 - 107 mmol/L) 107 Carbon Dioxide (22 - 30 mmol/L) 23 Anion Gap (5 - 16) 13 BUN (7 - 17 mg/dL) 46 H Creatinine (0.5 - 1.0 mg/dL) 0.6 Estimated GFR (>60 ml/min) > 60 BUN/Creatinine Ratio (7 - 25 %) 76.7 H Glucose (65 - 99 mg/dL) 159 H Lactic Acid (0.7 - 2.1 mmol/L) Cancelled 1.6 Calcium (8.4 - 10.2 mg/dL) 8.3 L Total Bilirubin (0.2 - 1.3 mg/dL) 0.2 AST (14 - 36 U/L) 17 ALT (9 - 52 U/L) 36 Alkaline Phosphatase (<127 U/L) 46 Troponin I (< 0.11 ng/ml) 0.02 Total Protein (6.3 - 8.2 g/dL) 5.5 L Albumin (3.5 - 5.0 g/dL) 3.0 L Globulin (1.9 - 4.2 gm/dL) 2.5 Albumin/Globulin Ratio (1.1 - 2.2 %) 1.2 Lipase (23 - 300 U/L) 78 Coagulation PT (9.4 - 12.5 SEC) 13.3 H INR (0.90 - 1.19) 1.27 H APTT (25 - 37 SEC) 21 L Hematology CBC w Diff NO MAN DIFF REQ WBC (4.8 - 10.8 /CUMM) 11.0 H RBC (4.20 - 5.40 /CUMM) 2.83 L Hgb (12.0 - 16.0 G/DL) 9.2 L Hct (37 - 47 %) 27.2 L MCV (81.0 - 99.0 FL) 96.1 MCH (27.0 - 31.0 PG) 32.6 H RDW (11.5 - 14.5 %) 13.8 Plt Count (130 - 400 /CUMM) 231 MPV (7.4 - 10.4 FL) 8.6 Gran % (42.2 - 75.2 %) 69.3 Lymphocytes % (20.5 - 51.1 %) 19.7 L Monocytes % (1.7 - 9.3 %) 9.0 Eosinophils % (0 - 5 %) 1.7 Basophils % (0.0 - 2.0 %) 0.3 Absolute Granulocytes (1.4 - 6.5 /CUMM) 7.6 H Absolute Lymphocytes (1.2 - 3.4 /CUMM) 2.2 Absolute Monocytes (0.10 - 0.60 /CUMM) 1.0 H Absolute Eosinophils (0.0 - 0.7 /CUMM) 0.2 Absolute Basophils (0.0 - 0.2 /CUMM) 0 PUBS MCHC (33.0 - 37.0 G/DL) 33.9 Toxicology Serum Alcohol (<10 MG/DL) < 10.0 Assessment/Plan Assessment/Plan 67-year-old woman with a past medical history of coronary artery disease (status post remote stenting 2 in 2011), aortic stenosis (moderate severity), systemic lupus, hypertension, hyperlipidemia and Sweet syndrome vasculitis she presented to our hospital with symptoms of abdominal cramping and emesis of a coffee ground material with noted significant anemia. She has had symptoms of chest discomfort during her hospitalization. Anemia: The patient presents with anemia likely of a GI source, in the context of dual antiplatelet therapy as well as significant alcohol consumption. I would hold her regimen of aspirin and Effient. Her symptoms of chest discomfort have been recurrent has had negative stress testing in the past for this. There is a possible GI etiology to her symptoms as well as a history of mild pericarditis, her symptoms are not typical for pericarditis. An EKG will be obtained to exclude significant ischemia as etiology for her symptoms, and we will check a troponin isoenzyme. If the EKG demonstrates no acute changes, given the need for her GI procedure, I would proceed with the same. Aspirin should as well be restarted after cleared from a GI standpoint. In the timing of her stenting, dual antiplatelet therapy will be discontinued (Effient) . Coronary artery disease: The patient has known coronary artery disease with remote stenting several years ago. We will discontinue dual antiplatelet therapy and maintain aspirin only. She has had an outpatient nuclear stress testing which demonstrated no evidence of infarct or ischemia. After resolution of her anemia, we may consider repeating the same as an outpatient. Her symptoms of chest discomfort are multifactorial and recurrent Aortic stenosis: Moderate by recent testing. This will be followed up as an outpatient. Thank you for allowing us to participate in the care of your patient. Please do not hesitate to contact us further with any questions. Sincerely, Huber Rush MD [facility] Consult Acknowledgment - Thank you for your consult request.
--- NOTE | 2017-12-08 15:20 | Proc Note Endoscopy ---
Endoscopy Procedure Procedure Date: 12/08/17 Procedure Type: EGD w/biopsy Pool Finisher: Torin Nolen M.D. ASA Classification: IV Indications: Hematemesis Blood loss anemia Instrument: diagnostic gastroscope Meds Received: MAC (O2 mask) Patient's Tolerance: good Complications: none Extent Reached: second part of duodenum Procedure: The patient signed informed consent, and was medicated. Lidocaine pharyngeal spray was administered. Pulse oximetry, blood pressure and cardiac monitoring were performed continuously throughout the procedure. The Olympus high- definition gastroscope was inserted into the mouth and advanced to the duodenum. Retroflexion was performed within the stomach to examine the cardia. Careful examination was performed. Findings: The esophagus had normal caliber and contour. There were no varices. The mucosa was intact throughout. The GE junction at 35 cm was normal. A small hiatal hernia. At the GE junction was a small area of erythema with central exudate, consistent with Clemencia-Bryant tear (versus erosion). The stomach had normal distention and active peristalsis. There was no fresh nor old blood within the gastric cavity. The cardia was normal except as above. Mucosa and folds of the fundus, and body were normal. Just distal to the incisura was a long/narrow and shallow ulceration, with clean base. 2 biopsies were obtained from this area. The antrum was otherwise normal. Biopsies were obtained from body, incisura and antrum. The pyloric channel was normal. There was no blood within the duodenum. The duodenal bulb was normal without erosion or ulceration. At the apex of the bulb with subcentimeter nodular polyp , which was biopsied twice. The mucosa and folds of the duodenal sweep were normal. Impression: * Small Clemencia-Bryant tear * Linear/shallow gastric ulceration * Duodenal polyp Recommendations: * Await pathology * Continue aspirin, but hold Effient for now (coronary stents 5 years ago), pending cardiology evaluation * PPI by mouth twice a day * Regular diet * Follow-up CBC tonight and in the morning. Maintain hemoglobin greater than 8. * Cardiology consultation given chest pain CC: Kemar FERNANDEZ,Tim Baer; Toney FERNANDEZ,Gen Jarvis
[2017-12-08 19:54] LABS: ABSOLUTE BASOPHIL COUNT 0 /CUMM (0.0-0.2); ABSOLUTE EOSINOPHIL COUNT 0.4 /CUMM (0.0-0.7); ABSOLUTE GRANULOCYTE CT 9.8 /CUMM (1.4-6.5); ABSOLUTE LYMPH COUNT 2.6 /CUMM (1.2-3.4); ABSOLUTE MONOCYTE COUNT 1.6 /CUMM (0.10-0.60); BASOPHIL % 0.3 % (0.0-2.0); EOSINOPHIL % 2.7 % (0-5); GRANULOCYTE % 67.9 % (42.2-75.2); HEMATOCRIT 25.4 % (37-47); MEAN CORPUSCULAR HGB 31.9 PG (27.0-31.0); MEAN CORPUSCULAR HGB CONC 34.2 G/DL (33.0-37.0); MEAN CORPUSCULAR VOLUME 93.2 FL (81.0-99.0); MEAN PLATELET VOLUME 8.4 FL (7.4-10.4); PLATELET COUNT 201 /CUMM (130-400); RBC DISTRIBUTION WIDTH 16.5 % (11.5-14.5); RED BLOOD CELL CT 2.73 /CUMM (4.20-5.40); WHITE BLOOD CELL COUNT 14.4 /CUMM (4.8-10.8)
--- NOTE | 2017-12-09 05:18 | Event Note ---
Event Note Event Note: Patient was having left sided Chest Pain, lasting 5-10 minutes, radiating to the left and resolved on its own. Patient had similar chest pain this morning EKG and troponins were done, which were negative. Denies any associated shortness of breath or palpitations. Patient currently denies any chest pain. Normal S1- S2 and Lungs clear to auscultation. VSS. Patient was transferred to telemetry floor for close monitoring and another set of Troponins and EKG were ordered, with troponins of 0.03(no change since morning) and EKG showing sinus tachycardia with a heart rate of [address]-T wave changes.
[2017-12-09 06:35] VITALS: BP 120/54
--- NOTE | 2017-12-09 07:00 | PN- Housestaff ---
See Addendum Subjective Follow-up For: GI bleed, chest pain Complaints: no complaints Tele-Events Since Last Visit: Normal sinus rhythm. Heart rate 70 Subjective: I saw the patient along with a resident at bedside. She was lying comfortably in her bed. She offers no complaints. She says she slept well overnight. She denies chest pain, shortness of breath, vomiting, nausea, hematuria, abdominal pain. Patient had EGDs with biopsy done yesterday. She urinated well after the procedure. She complains of constipation for the past 2-3 days. Review of Systems Constitutional: Reports: no symptoms. Cardiovascular: Reports: no symptoms. Respiratory: Reports: no symptoms. Gastrointestinal: Reports: constipation. Genitourinary: Reports: no symptoms. Musculoskeletal: Reports: no symptoms. Neurological/Psychological: Reports: no symptoms. Objective Last 24 Hrs of Vital Signs/I&O Vital Signs Date Time Temp Pulse Resp B/P B/P Pulse O2 O2 Flow FiO2 Mean Ox Delivery Rate 12/09 0635 97.9 101 20 120/54 92 Room Air 12/08 2155 98.2 95 20 164/68 96 12/08 1612 98.5 90 18 132/68 95 Room Air 12/08 1200 98.3 90 18 130/64 96 Room Air Intake & Output 12/09 1600 12/09 0800 12/09 0000 Intake Total 200 Output Total Balance 200 Intake, Oral 200 Physical Exam General Appearance: Alert, Oriented X3, Cooperative, No Acute Distress Skin: No Rashes HEENT: Atraumatic, Mucous Membr. moist/pink Neck: Supple, No JVD Cardiovascular: Regular Rate, Normal S1, Normal S2, systolic murmur. Lungs: Clear to Auscultation Abdomen: Soft, No Masses, bowel sounds heard. Neurological: Normal Speech, Strength at 5/5 X4 Ext Extremities: No Edema Current Medications: Current Medications Sig/Delaney Start time Last Medication Dose Route Stop Time Status Admin Acetaminophen 650 MG .STK-MED ONE 12/08 1233 DC PO 12/08 1234 Acetaminophen 650 MG Q6P PRN 12/07 1315 AC 12/08 PO 1237 Aspirin 81 MG DAILY 12/08 1607 DC 12/08 PO 1752 Dextrose/Sodium 1,000 ML Q16H 12/07 1600 DC 12/08 Chloride IV 1115 Docusate Sodium 100 MG DAILY 12/09 1000 AC PO Hydromorphone HCl 0.6 MG Q4P PRN 12/07 1500 AC IV Levothyroxine Sodium 0.05 MG DAILY AC 12/08 0700 AC 12/09 PO 0611 Lidocaine 2 MG .STK-MED ONE 12/08 1520 [facility] 12/08 1521 Omeprazole 40 MG BID 12/08 2200 AC 12/08 PO 2139 Pantoprazole Sodium 40 MG DAILY 12/08 1000 DC 12/08 IV 1114 Patient Medication 1 ED ONE ONE 12/08 1315 HI Teaching ED 12/08 1316 Polyethylene Glycol 17 GM DAILY 12/09 1000 AC PO Last 24 Hrs of Lab/Boni Results Last 24 Hrs of Labs/Mics: Laboratory Tests 12/09/17 0835: CBC w Diff Pending, WBC Pending, RBC Pending, Hgb Pending, Hct Pending, MCV Pending, MCH Pending, RDW Pending, Plt Count Pending, MPV Pending, PUBS MCHC Pending 12/09/17 0615: Troponin I 0.10 12/08/17 2000: Troponin I Cancelled 12/08/17 2000: Troponin I Cancelled 12/08/17 1852: Troponin I 0.03, CBC w Diff NO MAN DIFF REQ, RBC 2.73 L, MCV 93.2, MCH 31.9 H, RDW 16.5 H, MPV 8.4, Gran % 67.9, Lymphocytes % 18.2 L, Monocytes % 10.9 H, Eosinophils % 2.7, Basophils % 0.3, Absolute Granulocytes 9.8 H, Absolute Lymphocytes 2.6, Absolute Monocytes 1.6 H, Absolute Eosinophils 0.4, Absolute Basophils 0, PUBS MCHC 34.2 12/08/17 1500: Troponin I Cancelled Assessment/Plan Assessment: Ms. Pittman is 67-year-old female with history of Coronary artery to on aspirin and Effient s/p stent placement in 2011, hypertension, hyperlipidemia, myocardial infarction, Sweet syndrome vasculitis, and SLE who presents from home via EMS with chief complaint of abdominal cramping,nausea, vomiting and 2 episodes of coffee-ground emesis. Vomitus were small amounts, and dark colored like coffee grounds. 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 She denied chest pain or shortness of breath, palpitations, or syncope on presentation. However she admitted that she sometimes got chest discomfort/ pressure and addressed it to her vasculitis. Problem list: 1. Upper GI bleed-r/o ulcers or varices in the background of anticoagulation with aspirin and effient 2. Coronary artery disease, hyperlipidemia, history of myocardial infarction 3. History of SLE and sweet syndrome * Patient was given 1 unit of blood transfusion yesterday. Awaiting C BC report today. Patient had a EGD scope. With biopsy which showed small Clemencia Vane tear with gastric ulceration and duodenal polyp. Appreciate GI follow-up. * Patient Effient was discontinued as per cardiology. Her aspirin was started today. * Keep hemoglobin more than 8. * We will do chest x-ray, CBC, BMP, urine analysis. * Cardiology follow-up appreciated. * maintain 2 large bore IVs at all times * IV protonix daily Alps for DVT ppx regular diet FC Problem List: 1. GI bleed Pain Ratin Pain Location: none Pain Goal: Remain pain free Pain Plan: tylenol Tomorrow's Labs & Rationales: cbc,bep
[2017-12-09 10:33] LABS: ABSOLUTE BASOPHIL COUNT 0.1 /CUMM (0.0-0.2); ABSOLUTE EOSINOPHIL COUNT 0.5 /CUMM (0.0-0.7); ABSOLUTE GRANULOCYTE CT 9.5 /CUMM (1.4-6.5); ABSOLUTE MONOCYTE COUNT 1.5 /CUMM (0.10-0.60); BASOPHIL % 0.4 % (0.0-2.0); EOSINOPHIL % 3.6 % (0-5); GRANULOCYTE % 65.3 % (42.2-75.2); HEMATOCRIT 24.9 % (37-47); MEAN CORPUSCULAR HGB CONC 33.8 G/DL (33.0-37.0); MEAN CORPUSCULAR VOLUME 94.5 FL (81.0-99.0); MEAN PLATELET VOLUME 8.6 FL (7.4-10.4); PLATELET COUNT 210 /CUMM (130-400); RBC DISTRIBUTION WIDTH 16.2 % (11.5-14.5); RED BLOOD CELL CT 2.64 /CUMM (4.20-5.40); WHITE BLOOD CELL COUNT 14.6 /CUMM (4.8-10.8)
--- NOTE | 2017-12-09 13:38 | RADIOLOGY REPORT ---
EXAMINATION: XR CHEST CLINICAL INFORMATION: Chest pain. COMPARISON: None TECHNIQUE: 2 views of the chest were obtained. FINDINGS: Triangular nonspecific airspace opacity is noted at right lower lobe of the lung anteromedially, in the appropriate clinical background, may represent pneumonia. Follow-up radiograph to document resolution is recommended. The remainder of the lungs bilaterally appear clear. There is no pleural effusion present. The visualized upper abdomen is unremarkable. Multilevel degenerative spondylosis is seen in the spine. IMPRESSION: Nonspecific triangular opacity at right lower lobe of the lung anteromedially, in the appropriate clinical setting, may represent pneumonia. Follow-up radiograph to document resolution is recommended.
[2017-12-09 14:07] VITALS: BP 124/58
--- NOTE | 2017-12-09 14:47 | PN- Gastroenterology ---
Assessment/Plan Assessment/Recommendations: Hematemesis, blood loss anemia. Stable without evidence of rebleeding. Hematocrit stable. Small gastric ulcer, with biopsies pending. Atypical chest pain. Recommendations: * Await pathology * Continue aspirin, but hold Effient * Continue PPI by mouth twice a day * Continue Regular diet * Follow-up CBC tomorrow morning. Maintain hemoglobin greater than 8. If discharged soon, will follow up in our office in 1-2 weeks Subjective Subjective: Postprandial chest pain radiating to the left arm yesterday, although has not recurred today and has tolerated breakfast and lunch. No nausea or vomiting. No abdominal pain. No bowel movements, including melena and blood per rectum. Objective Vital Signs and I&Os Vital Signs Date Time Temp Pulse Resp B/P B/P Pulse O2 O2 Flow FiO2 Mean Ox Delivery Rate 12/09 1407 98.4 96 18 124/58 98 Room Air 12/09 0635 97.9 101 20 120/54 92 Room Air 12/08 2155 98.2 95 20 164/68 96 12/08 1612 98.5 90 18 132/68 95 Room Air Intake & Output 12/09 1600 12/09 0400 12/08 1600 12/08 0400 12/07 1600 12/07 0400 Intake Total 200 810 200 Output Total 400 Balance 200 410 200 Intake, IV 790 200 Intake, Oral 200 20 Number 1 Bowel Movements Output, Urine 400 Patient 174 lb 174 lb 173 lb Weight Weight Reported by Patient Measurement Method Physical Exam: Sclera anicteric. Abdomen soft and nontender. Current Medications: Current Medications Sig/Delaney Start time Last Medication Dose Route Stop Time Status Admin Acetaminophen 650 MG Q6P PRN 12/07 1315 AC 12/08 PO 1237 Aspirin 81 MG DAILY 12/09 1000 AC 12/09 PO 1047 Aspirin 81 MG DAILY 12/08 1607 DC 12/08 PO 1752 Dextrose/Sodium 1,000 ML Q16H 12/07 1600 DC 12/08 Chloride IV 1115 Docusate Sodium 100 MG DAILY 12/09 1000 AC 12/09 PO 0907 Hydromorphone HCl 0.6 MG Q4P PRN 12/07 1500 AC IV Levothyroxine Sodium 0.05 MG DAILY AC 12/08 0700 AC 12/09 PO 0611 Lidocaine 2 MG .STK-MED ONE 12/08 1520 [facility] 12/08 1521 Omeprazole 40 MG BID 12/08 2200 AC 12/09 PO 0907 Pantoprazole Sodium 40 MG DAILY 12/08 1000 DC 12/08 IV 1114 Polyethylene Glycol 17 GM DAILY 12/09 1000 AC 12/09 PO 0907 Results Pertinent Lab Results: Laboratory Tests 12/09 12/09 12/09 1000 0835 0615 Chemistry Sodium Cancelled Potassium Cancelled Chloride Cancelled Carbon Dioxide Cancelled Anion Gap Cancelled BUN Cancelled Creatinine Cancelled BUN/Creatinine Ratio Cancelled Troponin I (< 0.11 ng/ml) 0.10 Hematology CBC w Diff NO MAN DIFF REQ WBC (4.8 - 10.8 /CUMM) 14.6 H RBC (4.20 - 5.40 /CUMM) 2.64 L Hgb (12.0 - 16.0 G/DL) 8.4 L Hct (37 - 47 %) 24.9 L MCV (81.0 - 99.0 FL) 94.5 MCH (27.0 - 31.0 PG) 32.0 H RDW (11.5 - 14.5 %) 16.2 H Plt Count (130 - 400 /CUMM) 210 MPV (7.4 - 10.4 FL) 8.6 Gran % (42.2 - 75.2 %) 65.3 Lymphocytes % (20.5 - 51.1 %) 20.3 L Monocytes % (1.7 - 9.3 %) 10.4 H Eosinophils % (0 - 5 %) 3.6 Basophils % (0.0 - 2.0 %) 0.4 Absolute Granulocytes (1.4 - 6.5 /CUMM) 9.5 H Absolute Lymphocytes (1.2 - 3.4 /CUMM) 3.0 Absolute Monocytes (0.10 - 0.60 /CUMM) 1.5 H Absolute Eosinophils (0.0 - 0.7 /CUMM) 0.5 Absolute Basophils (0.0 - 0.2 /CUMM) 0.1 PUBS MCHC (33.0 - 37.0 G/DL) 33.8 12/08 Chemistry Troponin I (< 0.11 ng/ml) Cancelled Cancelled 0.03 Hematology CBC w Diff NO MAN DIFF REQ WBC (4.8 - 10.8 /CUMM) 14.4 H RBC (4.20 - 5.40 /CUMM) 2.73 L Hgb (12.0 - 16.0 G/DL) 8.7 L Hct (37 - 47 %) 25.4 L MCV (81.0 - 99.0 FL) 93.2 MCH (27.0 - 31.0 PG) 31.9 H RDW (11.5 - 14.5 %) 16.5 H Plt Count (130 - 400 /CUMM) 201 MPV (7.4 - 10.4 FL) 8.4 Gran % (42.2 - 75.2 %) 67.9 Lymphocytes % (20.5 - 51.1 %) 18.2 L Monocytes % (1.7 - 9.3 %) 10.9 H Eosinophils % (0 - 5 %) 2.7 Basophils % (0.0 - 2.0 %) 0.3 Absolute Granulocytes (1.4 - 6.5 /CUMM) 9.8 H Absolute Lymphocytes (1.2 - 3.4 /CUMM) 2.6 Absolute Monocytes (0.10 - 0.60 /CUMM) 1.6 H Absolute Eosinophils (0.0 - 0.7 /CUMM) 0.4 Absolute Basophils (0.0 - 0.2 /CUMM) 0 PUBS MCHC (33.0 - 37.0 G/DL) 34.2 12/08 12/08 1500 0625 Chemistry Sodium (137 - 145 mmol/L) 147 H Potassium (3.5 - 5.1 mmol/L) 3.7 Chloride (98 - 107 mmol/L) 111 H Carbon Dioxide (22 - 30 mmol/L) 23 Anion Gap (5 - 16) 13 BUN (7 - 17 mg/dL) 22 H Creatinine (0.5 - 1.0 mg/dL) 0.6 Estimated GFR (>60 ml/min) > 60 BUN/Creatinine Ratio (7 - 25 %) 36.7 H Iron (37 - 170 ug/dL) 186 H Total Bilirubin (0.2 - 1.3 mg/dL) < 0.1 L Direct Bilirubin (< 0.4 mg/dL) 0 AST (14 - 36 U/L) 18 ALT (9 - 52 U/L) 35 Alkaline Phosphatase (<127 U/L) 42 Troponin I (< 0.11 ng/ml) Cancelled 0.03 Total Protein (6.3 - 8.2 g/dL) 5.1 L Albumin (3.5 - 5.0 g/dL) 2.8 L Vitamin B12 (239 - 931 pg/mL) 599 Coagulation PT (9.4 - 12.5 SEC) 12.8 H INR (0.90 - 1.19) 1.22 H Hematology CBC w Diff NO MAN DIFF REQ WBC (4.8 - 10.8 /CUMM) 11.6 H RBC (4.20 - 5.40 /CUMM) 2.28 L Hgb (12.0 - 16.0 G/DL) 7.3 *L Hct (37 - 47 %) 22.0 L MCV (81.0 - 99.0 FL) 96.8 MCH (27.0 - 31.0 PG) 31.8 H RDW (11.5 - 14.5 %) 14.1 Plt Count (130 - 400 /CUMM) 209 MPV (7.4 - 10.4 FL) 8.6 Gran % (42.2 - 75.2 %) 61.9 Lymphocytes % (20.5 - 51.1 %) 23.8 Monocytes % (1.7 - 9.3 %) 10.0 H Eosinophils % (0 - 5 %) 3.8 Basophils % (0.0 - 2.0 %) 0.5 Absolute Granulocytes (1.4 - 6.5 /CUMM) 7.2 H Absolute Lymphocytes (1.2 - 3.4 /CUMM) 2.8 Absolute Monocytes (0.10 - 0.60 /CUMM) 1.2 H Absolute Eosinophils (0.0 - 0.7 /CUMM) 0.4 Absolute Basophils (0.0 - 0.2 /CUMM) 0.1 PUBS MCHC (33.0 - 37.0 G/DL) 32.9 L 12/07 12/07 1540 1126 Chemistry Lactic Acid Cancelled Hematology CBC w Diff NO MAN DIFF REQ WBC (4.8 - 10.8 /CUMM) 13.3 H RBC (4.20 - 5.40 /CUMM) 2.62 L Hgb (12.0 - 16.0 G/DL) 8.4 L Hct (37 - 47 %) 25.3 L MCV (81.0 - 99.0 FL) 96.4 MCH (27.0 - 31.0 PG) 32.1 H RDW (11.5 - 14.5 %) 13.7 Plt Count (130 - 400 /CUMM) 217 MPV (7.4 - 10.4 FL) 8.3 Gran % (42.2 - 75.2 %) 69.5 Lymphocytes % (20.5 - 51.1 %) 21.1 Monocytes % (1.7 - 9.3 %) 8.3 Eosinophils % (0 - 5 %) 0.9 Basophils % (0.0 - 2.0 %) 0.2 Absolute Granulocytes (1.4 - 6.5 /CUMM) 9.2 H Absolute Lymphocytes (1.2 - 3.4 /CUMM) 2.8 Absolute Monocytes (0.10 - 0.60 /CUMM) 1.1 H Absolute Eosinophils (0.0 - 0.7 /CUMM) 0.1 Absolute Basophils (0.0 - 0.2 /CUMM) 0 PUBS MCHC (33.0 - 37.0 G/DL) 33.3 12/07 1100 Chemistry Sodium (137 - 145 mmol/L) 143 Potassium (3.5 - 5.1 mmol/L) 4.3 Chloride (98 - 107 mmol/L) 107 Carbon Dioxide (22 - 30 mmol/L) 23 Anion Gap (5 - 16) 13 BUN (7 - 17 mg/dL) 46 H Creatinine (0.5 - 1.0 mg/dL) 0.6 Estimated GFR (>60 ml/min) > 60 BUN/Creatinine Ratio (7 - 25 %) 76.7 H Glucose (65 - 99 mg/dL) 159 H Lactic Acid (0.7 - 2.1 mmol/L) 1.6 Calcium (8.4 - 10.2 mg/dL) 8.3 L Total Bilirubin (0.2 - 1.3 mg/dL) 0.2 AST (14 - 36 U/L) 17 ALT (9 - 52 U/L) 36 Alkaline Phosphatase (<127 U/L) 46 Troponin I (< 0.11 ng/ml) 0.02 Total Protein (6.3 - 8.2 g/dL) 5.5 L Albumin (3.5 - 5.0 g/dL) 3.0 L Globulin (1.9 - 4.2 gm/dL) 2.5 Albumin/Globulin Ratio (1.1 - 2.2 %) 1.2 Lipase (23 - 300 U/L) 78 Coagulation PT (9.4 - 12.5 SEC) 13.3 H INR (0.90 - 1.19) 1.27 H APTT (25 - 37 SEC) 21 L Hematology CBC w Diff NO MAN DIFF REQ WBC (4.8 - 10.8 /CUMM) 11.0 H RBC (4.20 - 5.40 /CUMM) 2.83 L Hgb (12.0 - 16.0 G/DL) 9.2 L Hct (37 - 47 %) 27.2 L MCV (81.0 - 99.0 FL) 96.1 MCH (27.0 - 31.0 PG) 32.6 H RDW (11.5 - 14.5 %) 13.8 Plt Count (130 - 400 /CUMM) 231 MPV (7.4 - 10.4 FL) 8.6 Gran % (42.2 - 75.2 %) 69.3 Lymphocytes % (20.5 - 51.1 %) 19.7 L Monocytes % (1.7 - 9.3 %) 9.0 Eosinophils % (0 - 5 %) 1.7 Basophils % (0.0 - 2.0 %) 0.3 Absolute Granulocytes (1.4 - 6.5 /CUMM) 7.6 H Absolute Lymphocytes (1.2 - 3.4 /CUMM) 2.2 Absolute Monocytes (0.10 - 0.60 /CUMM) 1.0 H Absolute Eosinophils (0.0 - 0.7 /CUMM) 0.2 Absolute Basophils (0.0 - 0.2 /CUMM) 0 PUBS MCHC (33.0 - 37.0 G/DL) 33.9 Toxicology Serum Alcohol (<10 MG/DL) < 10.0
[2017-12-09 21:55] VITALS: BP 130/60
--- NOTE | 2017-12-10 06:30 | PN- Housestaff ---
Harvinder FERNANDEZ,Leticia 12/10/17 0629: Subjective Follow-up For: GI bleed Complaints: COUGH WITH SPUTUM PRODUCTION. Tele-Events Since Last Visit: Normal sinus rhythm Subjective: I saw the patient at bedside. Patient was lying in her bed comfortably. She denies chest pain, chest pressure, shortness of breath, headache, nausea, vomiting, abdominal pain, hematuria, bloody bowel movement. She complains of cough with yellow sputum production since today morning Review of Systems Constitutional: Reports: no symptoms. Cardiovascular: Reports: no symptoms. Respiratory: Reports: cough. Gastrointestinal: Reports: no symptoms. Genitourinary: Reports: no symptoms. Musculoskeletal: Reports: no symptoms. Neurological/Psychological: Reports: no symptoms. Objective Last 24 Hrs of Vital Signs/I&O Vital Signs Date Time Temp Pulse Resp B/P B/P Pulse O2 O2 Flow FiO2 Mean Ox Delivery Rate 12/10 0800 96 Room Air 12/10 0656 98.6 90 20 134/64 98 Room Air 12/09 2155 98.7 90 20 130/60 99 12/09 1407 98.4 96 18 124/58 98 Room Air Intake & Output 12/10 1600 12/10 0800 12/10 0000 Intake Total 240 500 Output Total Balance 240 500 Intake, Oral 240 500 Physical Exam General Appearance: Alert, Oriented X3, Cooperative, No Acute Distress Skin: No Rashes HEENT: Atraumatic Cardiovascular: Regular Rate, Normal S1, Normal S2, No Murmurs Lungs: Clear to Auscultation Abdomen: Normal Bowel Sounds, Soft, No Tenderness, No Hepatospenomegaly Neurological: Normal Gait, Normal Speech, Strength at 5/5 X4 Ext, Normal Tone Extremities: No Edema Vascular: Normal Pulses Current Medications: Current Medications Sig/Delaney Start time Last Medication Dose Route Stop Time Status Admin Acetaminophen 650 MG .STK-MED ONE 12/09 2116 DC PO 12/09 2117 Acetaminophen 650 MG Q6P PRN 12/07 1315 AC 12/09 PO 2117 Aspirin 81 MG DAILY 12/09 1000 AC 12/10 PO 0803 Docusate Sodium 100 MG DAILY 12/09 1000 AC 12/10 PO 0803 Hydromorphone HCl 0.6 MG Q4P PRN 12/07 1500 AC IV Levothyroxine Sodium 0.05 MG DAILY AC 12/08 0700 AC 12/10 PO 0633 Omeprazole 40 MG BID 12/08 2199 AC 12/10 PO 0803 Paroxetine HCl 30 MG AT BEDTIME 12/09 2200 AC 12/09 PO 2232 Polyethylene Glycol 17 GM DAILY 12/09 1000 AC 12/10 PO 0803 Last 24 Hrs of Lab/Boni Results Last 24 Hrs of Labs/Mics: Laboratory Tests 12/10/17 0630: Anion Gap 11, Estimated GFR > 60, BUN/Creatinine Ratio 18.3, CBC w Diff NO MAN DIFF REQ, RBC 2.52 L, MCV 95.2, MCH 31.9 H, RDW 16.0 H, MPV 8.4, Gran % 67.1, Lymphocytes % 17.9 L, Monocytes % 12.1 H, Eosinophils % 2.4, Basophils % 0.5, Absolute Granulocytes 10.5 H, Absolute Lymphocytes 2.8, Absolute Monocytes 1.9 H, Absolute Eosinophils 0.4, Absolute Basophils 0.1, PUBS MCHC 33.5 Assessment/Plan Assessment: Ms. Pittman is 67-year-old female with history of Coronary artery to on aspirin and Effient s/p stent placement in 2011, hypertension, hyperlipidemia, myocardial infarction, Sweet syndrome vasculitis, and SLE who was admitted for upper GI bleed evaluation. Problem list: 1. Upper GI bleed secondary to duodenal polyp, small Clemencia Vane tear. 2. History of SLE, Sweet syndrome 3. Cough with sputum production with x-ray finding of right lower lobe questionable pneumonia. * Patient presented with upper GI bleed and underwent the EGD scope in which showed small Clemencia SANDOVAL TEAR with gastric ulceration and duodenal polyp Patient was given 1 unit of blood transfusion. Her repeat hemoglobin today is 8. Appreciate GI follow-up. * Patient Effient was discontinued as per cardiology. Continue aspirin. * Keep hemoglobin more than 8. * Patient complains of cough with sputum production. Patient WBC count increased from 4.6-15.6 today. Patient is afebrile since admission. Chest x- ray taken yesterday shows nonspecific triangular opacity of the right lower lobe of the lung and hence a CAT scan was repeated today which showed early focus of inflammatory disease in the apical segment of left upper lobe. Pulmonology consult placed. * Cardiology follow-up appreciated. * maintain 2 large bore IVs at all times * GI prophylaxis-Prilosec 40 mg twice a day. Alps for DVT ppx regular diet FC Problem List: 1. GI bleed Pain Ratin Pain Location: NONE Pain Goal: Remain pain free Pain Plan: TYLENOL Tomorrow's Labs & Rationales: ALEJANDRO Wolfe MD,Leyda 12/10/17 1149: Attending MD Review Statement Attending Statement Attending MD Statement: examined this patient, discuss w/resident/PA/FAST FOOD WORKER, agreed w/resident/PA/FAST FOOD WORKER, reviewed EMR data (avail), discussed with nursing, discussed with case mgmt, amended to note Attending Assessment/Plan: Patient seen and examined. Resting comfortably not in acute distress. No issues overnight. This morning when questioned she admits to having a productive cough of yellow phlegm. Denies chest pain. Denies shortness of breath with rest or ambulation. She is afebrile hemodynamically stable. Labs however she rising white cell count. Chest x-ray yesterday showed right lower lobe infiltrate which would be consistent with laceration pneumonia particularly considering her recent endoscopic evaluation. Due to the paucity of symptoms a CT scan was obtained. CT report today shows infiltrate noted on the x-ray to be atelectasis however she has a focal area of groundglass opacity in the apical segment of the left upper lobe. There is a subcentimeter left lower lobe pulmonary nodule. Laboratory data shows a white cell count to be trending upwards. Also significant is that her hemoglobin level is also trending downwards. On examination she is not in any distress. She has good entry bilateral lungs are clear to auscultation. Abdomen soft and nontender she has no peripheral edema. Problems: 1. Acute blood loss anemia 2. Upper gastrointestinal bleeding secondary to Clemencia-Sandoval tear and shallow gastric ulceration. 3. Duodenal polyp 4. History of coronary artery disease. 5. Probable aspiration pneumonia. Plan: -Hemoglobin level is trending down slowly. We will continue to monitor hemoglobin levels. Please notify the gastroenterology service. -She is only on antiplatelet therapy with aspirin for now. Effient has been discontinued. -As an outpatient she will follow up with the cardiology service for further ischemic workup. -Duodenal polyp biopsy results to be followed up by the GI service as an outpatient. -Her respiratory symptoms and rising white cell count is concern for pneumonia probably aspiration following her endoscopy. Begin patient on Augmentin 500 mg orally twice daily. If her hemoglobin level is stable she may be discharged home to follow-up as an outpatient. If however she continues to trend downwards she will probably need repeat endoscopic evaluation. Will transfuse to keep hemoglobin level greater than 8 given a history of coronary artery disease. Addendum: This afternoon patient was reported to have a temperature of 100.0. Due to concern for an underlying infection we will monitor her for that hospital. Regarding her leukocytosis, patient does state that this is chronic for her. She states that her white count has been as high as 30,000 in the past. She states that she has had a bone marrow biopsy to evaluate this in the past. It is noted that she does not have a left shift. Will continue to monitor closely. She has been started on Augmentin for possible aspiration pneumonia.
[2017-12-10 06:56] VITALS: BP 134/64
[2017-12-10 08:11] LABS: ABSOLUTE BASOPHIL COUNT 0.1 /CUMM (0.0-0.2); ABSOLUTE EOSINOPHIL COUNT 0.4 /CUMM (0.0-0.7); ABSOLUTE GRANULOCYTE CT 10.5 /CUMM (1.4-6.5); ABSOLUTE LYMPH COUNT 2.8 /CUMM (1.2-3.4); ABSOLUTE MONOCYTE COUNT 1.9 /CUMM (0.10-0.60); BASOPHIL % 0.5 % (0.0-2.0); EOSINOPHIL % 2.4 % (0-5); GRANULOCYTE % 67.1 % (42.2-75.2); MEAN CORPUSCULAR HGB 31.9 PG (27.0-31.0); MEAN CORPUSCULAR HGB CONC 33.5 G/DL (33.0-37.0); MEAN CORPUSCULAR VOLUME 95.2 FL (81.0-99.0); MEAN PLATELET VOLUME 8.4 FL (7.4-10.4); PLATELET COUNT 236 /CUMM (130-400); RED BLOOD CELL CT 2.52 /CUMM (4.20-5.40); WHITE BLOOD CELL COUNT 15.6 /CUMM (4.8-10.8)
--- NOTE | 2017-12-10 09:25 | CT SCAN REPORT ---
EXAMINATION: CT CHEST WITHOUT CONTRAST CLINICAL INFORMATION: 67-year-old female with increased dyspnea and sputum production. Per chart: Chest pain. COMPARISON: Chest x-ray done 12/09/2016. (Possible abnormality in the right cardiophrenic angle). Also portable chest x-ray on 09/05/2006. (No acute disease. Prominent right cardiophrenic fat pad). TECHNIQUE: Multidetector volumetric CT imaging of the chest was done. Axial MIP volume rendering provided. Sagittal and coronal reformatted images were obtained. DLP: 274 mGy-cm FINDINGS: COPY WRITER: Prominent right cardiophrenic fat pad. LUNGS: A focal area of linear subsegmental compression right middle lobe atelectasis abuts the prominent right cardiophrenic fat pad. However, a focal area of groundglass opacity is developing in the apical segment of the left upper lobe. Series 5, images 37 through 77. This could well represent a focal area of early inflammatory disease. A subpleural 4 mm nodule is present in the left lower lobe. Series 5, image 155. Linear scarring is seen in the lingular segment of left upper lobe. Series 5, image 243. Also peripheral linear areas of scarring are located in the posterolateral and posterior right costophrenic sulcus. Series 5, image 338. Series 5, image 374. MEDIASTINUM: Several subcentimeter lymph nodes are present in the mediastinum, AP window and pretracheal spaces. Coronary calcifications are present. The heart is normal in size. Both cardiophrenic fat pads are prominent larger on the right than left. This patient also has partial calcification of the aortic and mitral valves. PLEURA: There is no pleural effusion. No pleural mass or thickening. AXILLA: No lymphadenopathy. UPPER ABDOMEN: The patient has a small rudimentary spleen located beneath the left hemidiaphragm. OSSEOUS STRUCTURES: Unremarkable. IMPRESSION: 1. Early focus of inflammatory disease, apical segment of the left upper lobe. 2. Prominent cardiophrenic fat pads, right or the left. 3. Small rudimentary spleen.
--- NOTE | 2017-12-10 11:30 | PN- Cardiology ---
Subjective Subjective: The patient is awake, alert The events of the last 24 hours as well as telemetry were reviewed. Review of Systems: The review of systems is negative for palpitations nor lightheadedness. She continues to have atypical chest discomfort as described previously. The remainder of the 14 point review of systems is noncontributory with the exception of above. Objective Vital Signs and I&Os Vital Signs Date Time Temp Pulse Resp B/P B/P Pulse O2 O2 Flow FiO2 Mean Ox Delivery Rate 12/10 0800 96 Room Air 12/10 0656 98.6 90 20 134/64 98 Room Air 12/09 2155 98.7 90 20 130/60 99 12/09 1407 98.4 96 18 124/58 98 Room Air Intake & Output 12/10 1600 12/10 0800 12/10 0000 12/09 1600 12/09 0800 12/09 0000 Intake Total 240 500 500 200 Output Total Balance 240 500 500 200 Intake, Oral 240 500 500 200 Physical Exam: General: Nontoxic, no apparent distress. HEENT: Sclera and conjunctiva within normal limits, without xanthelasmas. Neck: Carotids 2+ without bruits. Respiratory: Clear to auscultation, air movement is good, without accessory respiratory muscle use. Heart: Regular rate and rhythm, without murmurs, without JVD. Abdomen: Soft, nontender, no masses, normoactive bowel sounds. Extremities: Without clubbing, cyanosis, without edema. Neuro: Nonfocal exam, strength, 5 out of 5 Skin: Within normal limits without lesions. Psych: Mood and affect: Normal Current Medications: Current Medications Sig/Delaney Start time Last Medication Dose Route Stop Time Status Admin Acetaminophen 650 MG .STK-MED ONE 12/09 2116 DC PO 12/09 2117 Acetaminophen 650 MG Q6P PRN 12/07 1315 AC 12/09 PO 2117 Aspirin 81 MG DAILY 12/09 1000 AC 12/10 PO 0803 Docusate Sodium 100 MG DAILY 12/09 1000 AC 12/10 PO 0803 Hydromorphone HCl 0.6 MG Q4P PRN 12/07 1500 AC IV Levothyroxine Sodium 0.05 MG DAILY AC 12/08 0700 AC 12/10 PO 0633 Omeprazole 40 MG BID 12/08 2200 AC 12/10 PO 0803 Paroxetine HCl 30 MG AT BEDTIME 12/09 2200 AC 12/09 PO 2232 Polyethylene Glycol 17 GM DAILY 12/09 1000 AC 12/10 PO 0803 Results Last 48 Hrs of Labs/Mics: Laboratory Tests 12/10/17 0630: Anion Gap 11, Estimated GFR > 60, BUN/Creatinine Ratio 18.3, CBC w Diff NO MAN DIFF REQ, RBC 2.52 L, MCV 95.2, MCH 31.9 H, RDW 16.0 H, MPV 8.4, Gran % 67.1, Lymphocytes % 17.9 L, Monocytes % 12.1 H, Eosinophils % 2.4, Basophils % 0.5, Absolute Granulocytes 10.5 H, Absolute Lymphocytes 2.8, Absolute Monocytes 1.9 H, Absolute Eosinophils 0.4, Absolute Basophils 0.1, PUBS MCHC 33.5 12/09/17 1000: Sodium Cancelled, Potassium Cancelled, Chloride Cancelled, Carbon Dioxide Cancelled, Anion Gap Cancelled, BUN Cancelled, Creatinine Cancelled, BUN/ Creatinine Ratio Cancelled 12/09/17 0835: CBC w Diff NO MAN DIFF REQ, RBC 2.64 L, MCV 94.5, MCH 32.0 H, RDW 16.2 H, MPV 8.6, Gran % 65.3, Lymphocytes % 20.3 L, Monocytes % 10.4 H, Eosinophils % 3.6, Basophils % 0.4, Absolute Granulocytes 9.5 H, Absolute Lymphocytes 3.0, Absolute Monocytes 1.5 H, Absolute Eosinophils 0.5, Absolute Basophils 0.1, PUBS MCHC 33.8 12/09/17 0615: Troponin I 0.10 12/08/17 2000: Troponin I Cancelled 12/08/17 2000: Troponin I Cancelled 12/08/17 1852: Troponin I 0.03, CBC w Diff NO MAN DIFF REQ, RBC 2.73 L, MCV 93.2, MCH 31.9 H, RDW 16.5 H, MPV 8.4, Gran % 67.9, Lymphocytes % 18.2 L, Monocytes % 10.9 H, Eosinophils % 2.7, Basophils % 0.3, Absolute Granulocytes 9.8 H, Absolute Lymphocytes 2.6, Absolute Monocytes 1.6 H, Absolute Eosinophils 0.4, Absolute Basophils 0, PUBS MCHC 34.2 12/08/17 1500: Troponin I Cancelled Assessment/Plan Assessment/Plan 67-year-old woman with a past medical history of coronary artery disease (status post remote stenting 2 in 2011), aortic stenosis (moderate severity), systemic lupus, hypertension, hyperlipidemia and Sweet syndrome vasculitis she presented to our hospital with symptoms of abdominal cramping and emesis of a coffee ground material with noted significant anemia. She has had symptoms of chest discomfort during her hospitalization. Anemia: The patient presents with anemia likely of a GI source. GI input is appreciated. Aspirin has been restarted. She will otherwise remain off of dual antiplatelet therapy. Coronary artery disease: The patient has known coronary artery disease with remote stenting several years ago. We will discontinue dual antiplatelet therapy and maintain aspirin only. She has had an outpatient nuclear stress testing which demonstrated no evidence of infarct or ischemia. After resolution of her anemia, we may consider repeating the same as an outpatient. Her symptoms of chest discomfort are multifactorial and recurrent, not consistent with an ischemic cardiac etiology. Aortic stenosis: Moderate by recent testing. This will be followed up as an outpatient. Continue telemetry? No
--- NOTE | 2017-12-10 12:54 | Cons- Pulmonary ---
General Information and HPI Consulting Request Date of Consult: 12/10/17 Requested By: soila Reason for Consult: Leukocytosis left upper lobe infiltrate History of Present Illness: Patient is a 67-year-old with history of lupus on Plaquenil coronary artery disease status post myocardial infarction stent placement and aortic stenosis admitted with upper GI bleed and hematemesis status post endoscopy 2 days ago. She has been a former smoker quit 5 years ago at the time of her myocardial infarction but continues to smoke E cigarettes. She has chronic sinus disease and prepped with cough of yellow sputum. Because of worsening leukocytosis and chest x-ray was done which suggests a right lower lobe density though this is been chronic and likely recommend represents an area of atelectasis as it was present [place] [address] scan of the chest was done which shows a small left upper lobe infiltrate which is not visible on chest x-ray. Patient has no acute pleuritic chest pain or hemoptysis she's had no fever remains on room air. Allergies/Medications Allergies: Coded Allergies: Iodinated Contrast- Oral and IV Dye (RASH 12/07/17) atorvastatin (UNKNOWN 12/07/17) celecoxib (UNKNOWN 12/07/17) ciprofloxacin (UNKNOWN 12/07/17) erythromycin base (UNKNOWN 12/07/17) ezetimibe (From ZETIA) (muscle pain 10/01/16) rofecoxib (From VIOXX) (? 06/24/17) sucralfate (UNKNOWN 12/07/17) omeprazole (INTERACTS WITH OTHER MEDS 12/07/17) Uncoded Allergies: BANDAIDS (Intermediate, RASH 06/24/17) Home Med List: Alirocumab (Praluent Pen) 75 MG/ML PEN.INJCTR 75 MG INJ Q2W CHOLESTEROL ( Reported) Aspirin (Children's Aspirin) 81 MG TAB.CHEW 1 TAB PO DAILY HEART/BLOOD ( Reported) Hydroxychloroquine Sulfate 200 MG TABLET 2 TAB PO DAILY OA (Reported) Levothyroxine Sodium (Levoxyl) 50 MCG TABLET 1 TAB PO DAILY THYROID (Reported ) Nebivolol HCl (Bystolic) 5 MG TABLET 1 TAB PO DAILY HEART (Reported) Paroxetine HCl 30 MG TABLET 30 MG PO DAILY MENTAL HEALTH (Reported) Prasugrel HCl (Effient) 10 MG TABLET 1 TAB PO DAILY BLOOD THINNER (Reported) Review of Systems Review of Systems Constitutional: Denies: chills, fever. Cardiovascular: Denies: chest pain, orthopena, peripheral edema. Respiratory: Reports: cough, sputum production. Denies: hemoptysis, short of breath, wheezing. GI: Denies: abdominal pain. Past History Travel History Traveled to [place] past 21 day No Medical History Blood Transfusion Hx: No Neurological: NONE EENT: NONE Cardiovascular: hypertension, hyperlipidemia, myocardial infarction Respiratory: NONE Gastrointestinal: NONE Hepatic: NONE Renal: NONE Musculoskeletal: NONE Psychiatric: NONE Endocrine: NONE Blood Disorders: SWEET'S SYNDROME VASCULITIS SLE Cancer(s): NONE SOFTWARE SUPPORT REPRESENTATIVE/Reproductive: NONE Surgical History Surgical History: appendectomy, hysterectomy, laminectomy, CARDIAC CATH (2004) 2 STENTS BROKEN ANKLE THYROGLOSSAL DUCT REMOVAL Psychosocial History Where Do You Live? Home Smoking Status: Unknown If Ever Smoked ETOH Use: heavy use (4-5 DRINKS PER DAY) Exam & Diagnostic Data Last 24 Hrs of Vital Signs/I&O Vital Signs Date Time Temp Pulse Resp B/P B/P Pulse O2 O2 Flow FiO2 Mean Ox Delivery Rate 12/10 0800 96 Room Air 12/10 0656 98.6 90 20 134/64 98 Room Air 12/09 2155 98.7 90 20 130/60 99 12/09 1407 98.4 96 18 124/58 98 Room Air Intake & Output 12/10 1600 12/10 0800 12/10 0000 Intake Total 240 500 Output Total Balance 240 500 Intake, Oral 240 500 Room oxygen saturation 96% exam for chest shows clear lung gorman are no focal wheezes or crackles cardiac exam shows regular S1 and S2 with a loud systolic murmur of aortic stenosis abdomen is soft nontender extremities have trace lower extremity edema Last 48 Hrs of Labs/Boni: Laboratory Tests 12/10/17 0630: Anion Gap 11, Estimated GFR > 60, BUN/Creatinine Ratio 18.3, CBC w Diff NO MAN DIFF REQ, RBC 2.52 L, MCV 95.2, MCH 31.9 H, RDW 16.0 H, MPV 8.4, Gran % 67.1, Lymphocytes % 17.9 L, Monocytes % 12.1 H, Eosinophils % 2.4, Basophils % 0.5, Absolute Granulocytes 10.5 H, Absolute Lymphocytes 2.8, Absolute Monocytes 1.9 H, Absolute Eosinophils 0.4, Absolute Basophils 0.1, PUBS MCHC 33.5 12/09/17 1000: Sodium Cancelled, Potassium Cancelled, Chloride Cancelled, Carbon Dioxide Cancelled, Anion Gap Cancelled, BUN Cancelled, Creatinine Cancelled, BUN/ Creatinine Ratio Cancelled 12/09/17 0835: CBC w Diff NO MAN DIFF REQ, RBC 2.64 L, MCV 94.5, MCH 32.0 H, RDW 16.2 H, MPV 8.6, Gran % 65.3, Lymphocytes % 20.3 L, Monocytes % 10.4 H, Eosinophils % 3.6, Basophils % 0.4, Absolute Granulocytes 9.5 H, Absolute Lymphocytes 3.0, Absolute Monocytes 1.5 H, Absolute Eosinophils 0.5, Absolute Basophils 0.1, PUBS MCHC 33.8 12/09/17 0615: Troponin I 0.10 12/08/171999: Troponin I Cancelled 12/08/17 2000: Troponin I Cancelled 12/08/17 1852: Troponin I 0.03, CBC w Diff NO MAN DIFF REQ, RBC 2.73 L, MCV 93.2, MCH 31.9 H, RDW 16.5 H, MPV 8.4, Gran % 67.9, Lymphocytes % 18.2 L, Monocytes % 10.9 H, Eosinophils % 2.7, Basophils % 0.3, Absolute Granulocytes 9.8 H, Absolute Lymphocytes 2.6, Absolute Monocytes 1.6 H, Absolute Eosinophils 0.4, Absolute Basophils 0, PUBS MCHC 34.2 12/08/17 1500: Troponin I Cancelled Assessment/Plan Impression/Plan: 67-year-old woman admitted with hematemesis acute blood loss anemia thought secondary to Clemencia-Bryant tear and small gastric ulcer has had increasing white count. At scan suggests possibility of the left upper lobe infiltrate possibly related to aspiration during her endoscopy. As this is quite small alternative explanations for leukocytosis should be sought. A small area of aspiration pneumonia/pneumonitis cannot be excluded. Other pulmonary nodules will need appropriate CT follow-up. Patient was to have outpatient sleep study and never followed up in the should be scheduled as outpatient Recommendations: Fully culture including sputum. Evaluate for other sources of leukocytosis as she is status post procedure and biopsies. 2. Treatment for aspiration pneumonia can be instituted trending her white count. Patient should have follow-up CT scan to assure that this lesion resolves and other pulmonary nodules are followed up. Consult Acknowledgment - Thank you for your consult request.
[2017-12-10 14:00] VITALS: BP 110/52
[2017-12-10] MEDS ORDERED: AUGMENTIN 500-1 EACH PO (14:29)
--- NOTE | 2017-12-10 14:32 | Patient Discharge Instructions ---
Discharge Instructions General Discharge Information You were seen/treated for: Upper GI bleed, aspiration pneumonia Watch for these problems: In case of any bloody vomiting, bloody bowel movement, nausea, vomiting, lightheadedness, cough, fever please go to the nearest emergency room. Special Instructions: Please follow-up with your primary care provider within 1-2 weeks of discharge and let them know about your recent admission at [facility]. Please make an appointment with radiology for nuclear stress test after seeing director integrated within 1-2 weeks of discharge. Please follow-up with the cube machine tender Dr. Nolen within 1-2 weeks of discharge. Please follow-up with Dr. Booker within 1-2 weeks of discharge. Please do a repeat complete blood count after a week. Diet Continue normal diet: Yes Recommended Diet: Regular Activity Full Activity/No Limits: No Activity Self Limited: Yes Acute Coronary Syndrome Inclusion Criteria At DC or during hospital stay patient has or had the following: ACS DIAGNOSIS No Discharge Core Measures Meds if any: Prescribed or Continued at Discharge Meds if any: NOT Prescribed or Continued at Discharge Congestive Heart Failure Inclusion Criteria At DC or during hospital stay patient has or had the following: CHF DIAGNOSIS No Discharge Core Measures Meds if any: Prescribed or Continued at Discharge Meds if any: NOT Prescribed or Continued at Discharge Cerebrovascular accident Inclusion Criteria At DC or during hospital stay patient has or had the following: CVA/TIA Diagnosis No Discharge Core Measures Meds if any: Prescribed or Continued at Discharge Meds if any: NOT Prescribed or Continued at Discharge Venous thromboembolism Inclusion Criteria VTE Diagnosis No VTE Type NONE VTE Confirmed by (Test) NONE Discharge Core Measures - Per Current guidelines, there needs to be overlap - treatment for the first 5 days of Warfarin therapy. - If discharged on Warfarin prior to 5 days of - overlap therapy, the patient will need to be - assessed for post discharge needs including - *Post discharge parental anticoagulation - *Warfarin and/or parental anticoagulation education - *Follow up date to check INR post discharge At least 5 days overlap therapy as Inpatient No Meds if any: Prescribed or Continued at Discharge Note: Overlap Therapy is Warfarin and Anticoagulant Meds if any: NOT Prescribed or Continued at Discharge
[2017-12-10 14:57] VITALS: BP 110/52
--- NOTE | 2017-12-10 15:13 | PN- Gastroenterology ---
Assessment/Plan Assessment/Recommendations: Hematemesis, blood loss anemia. Stable without evidence of rebleeding. Hematocrit with slight drop, although expected given equilibration (and BUN has dropped from the 40s to 11). Small gastric ulcer, with biopsies pending. Atypical chest pain. Recommendations: * Await pathology * Continue aspirin, but not Effient. This has been clarified with cardiology. * Continue PPI twice a day * Regular diet * May discharge from a GI standpoint, with careful outpatient follow-up (CBC tomorrow, office visit next week). This is been discussed with Dr. Wolfe, and the patient. Subjective Subjective: No nausea, vomiting, abdominal pain. Had a dark bowel movement, without fresh blood. No dizziness, lightheadedness, diaphoresis. . Objective Vital Signs and I&Os Vital Signs Date Time Temp Pulse Resp B/P B/P Pulse O2 O2 Flow FiO2 Mean Ox Delivery Rate 12/10 1457 100.0 96 18 110/52 98 Room Air 12/10 0800 96 Room Air 12/10 0656 98.6 90 20 134/64 98 Room Air 12/09 2155 98.7 90 20 130/60 99 Intake & Output 12/10 1600 12/10 0400 12/09 1600 12/09 0400 12/08 1600 12/08 0400 Intake Total 240 500 700 810 Output Total 400 Balance 240 500 700 410 Intake, IV 790 Intake, Oral 240 500 700 20 Number 1 Bowel Movements Output, Urine 400 Patient 174 lb 174 lb Weight Physical Exam: Abdomen soft, nontender. Current Medications: Current Medications Sig/Delaney Start time Last Medication Dose Route Stop Time Status Admin Acetaminophen 650 MG .STK-MED ONE 12/09 2116 DC PO 12/09 2117 Acetaminophen 650 MG Q6P PRN 12/07 1315 AC 12/09 PO 2118 Amoxicillin/ 500 MG BID 12/10 1343 AC Clavulanate Potassium PO Aspirin 81 MG DAILY 12/09 1000 AC 12/10 PO 0803 Docusate Sodium 100 MG DAILY 12/09 1000 AC 12/10 PO 0803 Hydromorphone HCl 0.6 MG Q4P PRN 12/07 1500 AC IV Levothyroxine Sodium 0.05 MG DAILY AC 12/08 0700 AC 12/10 PO 0633 Omeprazole 40 MG BID 12/08 2200 AC 12/10 PO 0803 Paroxetine HCl 30 MG AT BEDTIME 12/09 2200 AC 12/09 PO 2232 Polyethylene Glycol 17 GM DAILY 12/09 1000 AC 12/10 PO 0803 Results Pertinent Lab Results: Laboratory Tests 12/10 12/09 12/09 0630 1000 0914 Chemistry Sodium (137 - 145 mmol/L) 145 Cancelled Potassium (3.5 - 5.1 mmol/L) 3.8 Cancelled Chloride (98 - 107 mmol/L) 107 Cancelled Carbon Dioxide (22 - 30 mmol/L) 27 Cancelled Anion Gap (5 - 16) 11 Cancelled BUN (7 - 17 mg/dL) 11 Cancelled Creatinine (0.5 - 1.0 mg/dL) 0.6 Cancelled Estimated GFR (>60 ml/min) > 60 BUN/Creatinine Ratio (7 - 25 %) 18.3 Cancelled Hematology CBC w Diff NO MAN DIFF REQ WBC (4.8 - 10.8 /CUMM) 15.6 H RBC (4.20 - 5.40 /CUMM) 2.52 L Hgb (12.0 - 16.0 G/DL) 8.0 L Hct (37 - 47 %) 24.0 L MCV (81.0 - 99.0 FL) 95.2 MCH (27.0 - 31.0 PG) 31.9 H RDW (11.5 - 14.5 %) 16.0 H Plt Count (130 - 400 /CUMM) 236 MPV (7.4 - 10.4 FL) 8.4 Gran % (42.2 - 75.2 %) 67.1 Lymphocytes % (20.5 - 51.1 %) 17.9 L Monocytes % (1.7 - 9.3 %) 12.1 H Eosinophils % (0 - 5 %) 2.4 Basophils % (0.0 - 2.0 %) 0.5 Absolute Granulocytes (1.4 - 6.5 /CUMM) 10.5 H Absolute Lymphocytes (1.2 - 3.4 /CUMM) 2.8 Absolute Monocytes (0.10 - 0.60 /CUMM) 1.9 H Absolute Eosinophils (0.0 - 0.7 /CUMM) 0.4 Absolute Basophils (0.0 - 0.2 /CUMM) 0.1 PUBS MCHC (33.0 - 37.0 G/DL) 33.5 Urines Urine Color Cancelled Urine Clarity Cancelled Urine pH Cancelled Ur Specific Hewitt Cancelled Urine Protein Cancelled Urine Ketones Cancelled Urine Nitrite Cancelled Urine Bilirubin Cancelled Urine Urobilinogen Cancelled Ur Leukocyte Esterase Cancelled Ur Microscopic Cancelled Urine Hemoglobin Cancelled Urine Glucose Cancelled 12/09 12/09 12/08 0851 4215 1999 Chemistry Troponin I (< 0.11 ng/ml) 0.10 Cancelled Hematology CBC w Diff NO MAN DIFF REQ WBC (4.8 - 10.8 /CUMM) 14.6 H RBC (4.20 - 5.40 /CUMM) 2.64 L Hgb (12.0 - 16.0 G/DL) 8.4 L Hct (37 - 47 %) 24.9 L MCV (81.0 - 99.0 FL) 94.5 MCH (27.0 - 31.0 PG) 32.0 H RDW (11.5 - 14.5 %) 16.2 H Plt Count (130 - 400 /CUMM) 210 MPV (7.4 - 10.4 FL) 8.6 Gran % (42.2 - 75.2 %) 65.3 Lymphocytes % (20.5 - 51.1 %) 20.3 L Monocytes % (1.7 - 9.3 %) 10.4 H Eosinophils % (0 - 5 %) 3.6 Basophils % (0.0 - 2.0 %) 0.4 Absolute Granulocytes (1.4 - 6.5 /CUMM) 9.5 H Absolute Lymphocytes (1.2 - 3.4 /CUMM) 3.0 Absolute Monocytes (0.10 - 0.60 /CUMM) 1.5 H Absolute Eosinophils (0.0 - 0.7 /CUMM) 0.5 Absolute Basophils (0.0 - 0.2 /CUMM) 0.1 PUBS MCHC (33.0 - 37.0 G/DL) 33.8 12/08 1852 1500 Chemistry Troponin I (< 0.11 ng/ml) Cancelled 0.03 Cancelled Hematology CBC w Diff NO MAN DIFF REQ WBC (4.8 - 10.8 /CUMM) 14.4 H RBC (4.20 - 5.40 /CUMM) 2.73 L Hgb (12.0 - 16.0 G/DL) 8.7 L Hct (37 - 47 %) 25.4 L MCV (81.0 - 99.0 FL) 93.2 MCH (27.0 - 31.0 PG) 31.9 H RDW (11.5 - 14.5 %) 16.5 H Plt Count (130 - 400 /CUMM) 201 MPV (7.4 - 10.4 FL) 8.4 Gran % (42.2 - 75.2 %) 67.9 Lymphocytes % (20.5 - 51.1 %) 18.2 L Monocytes % (1.7 - 9.3 %) 10.9 H Eosinophils % (0 - 5 %) 2.7 Basophils % (0.0 - 2.0 %) 0.3 Absolute Granulocytes (1.4 - 6.5 /CUMM) 9.8 H Absolute Lymphocytes (1.2 - 3.4 /CUMM) 2.6 Absolute Monocytes (0.10 - 0.60 /CUMM) 1.6 H Absolute Eosinophils (0.0 - 0.7 /CUMM) 0.4 Absolute Basophils (0.0 - 0.2 /CUMM) 0 PUBS MCHC (33.0 - 37.0 G/DL) 34.2 12/08 12/07 0625 1540 Chemistry Sodium (137 - 145 mmol/L) 147 H Potassium (3.5 - 5.1 mmol/L) 3.7 Chloride (98 - 107 mmol/L) 111 H Carbon Dioxide (22 - 30 mmol/L) 23 Anion Gap (5 - 16) 13 BUN (7 - 17 mg/dL) 22 H Creatinine (0.5 - 1.0 mg/dL) 0.6 Estimated GFR (>60 ml/min) > 60 BUN/Creatinine Ratio (7 - 25 %) 36.7 H Iron (37 - 170 ug/dL) 186 H Total Bilirubin (0.2 - 1.3 mg/dL) < 0.1 L Direct Bilirubin (< 0.4 mg/dL) 0 AST (14 - 36 U/L) 18 ALT (9 - 52 U/L) 35 Alkaline Phosphatase (<127 U/L) 42 Troponin I (< 0.11 ng/ml) 0.03 Total Protein (6.3 - 8.2 g/dL) 5.1 L Albumin (3.5 - 5.0 g/dL) 2.8 L Vitamin B12 (239 - 931 pg/mL) 599 Coagulation PT (9.4 - 12.5 SEC) 12.8 H INR (0.90 - 1.19) 1.22 H Hematology CBC w Diff NO MAN DIFF REQ NO MAN DIFF REQ WBC (4.8 - 10.8 /CUMM) 11.6 H 13.3 H RBC (4.20 - 5.40 /CUMM) 2.28 L 2.62 L Hgb (12.0 - 16.0 G/DL) 7.3 *L 8.4 L Hct (37 - 47 %) 22.0 L 25.3 L MCV (81.0 - 99.0 FL) 96.8 96.4 MCH (27.0 - 31.0 PG) 31.8 H 32.1 H RDW (11.5 - 14.5 %) 14.1 13.7 Plt Count (130 - 400 /CUMM) 209 217 MPV (7.4 - 10.4 FL) 8.6 8.3 Gran % (42.2 - 75.2 %) 61.9 69.5 Lymphocytes % (20.5 - 51.1 %) 23.8 21.1 Monocytes % (1.7 - 9.3 %) 10.0 H 8.3 Eosinophils % (0 - 5 %) 3.8 0.9 Basophils % (0.0 - 2.0 %) 0.5 0.2 Absolute Granulocytes (1.4 - 6.5 /CUMM) 7.2 H 9.2 H Absolute Lymphocytes (1.2 - 3.4 /CUMM) 2.8 2.8 Absolute Monocytes (0.10 - 0.60 /CUMM) 1.2 H 1.1 H Absolute Eosinophils (0.0 - 0.7 /CUMM) 0.4 0.1 Absolute Basophils (0.0 - 0.2 /CUMM) 0.1 0 PUBS MCHC (33.0 - 37.0 G/DL) 32.9 L 33.3
--- NOTE | 2017-12-10 16:20 | Discharge Summary ---
Visit Information Visit Dates Admission Date: 12/07/17 Discharge Date: 12/12/17 Hospital Course Course Attending Physician: Leyda Wolfe MD Primary Care Physician: Tim Reinoso MD Hospital Course: Marisa Melo, 67-year-old female with history of coronary disease status post 2 stents on aspirin and Effient, hypertension, hyperlipidemia, myocardial infarction, Sweet syndrome vasculitis, and SLE who presented from home via EMS with chief complaint of abdominal cramping,nausea, vomiting and 2 episodes of coffee-ground emesis which occured around 2 AM and around 9 AM on the day of admission. The vomitus was coffee ground associated with abdominal cramping and nausea which Vomitu resolved by the time she came to ER. She denied chest pain or shortness of breath, palpitations, or syncope. She did feel lightheaded during the same time she had vomiting. She had a normal BM. She repored significant alcohol consumption of 4-5 glasses of wine daily. No history of peptic ulcer disease or esophageal varices or previous GI bleed. Her last colonoscopy was approximate 5 years ago which was reported as normal except for hemorrhoids. No family history of colon or gastric cancer.She follows up with Dr. Dudley cardiology and Dr. Reinoso for her primary care. Hospital course 1. Anemia secondary to Upper GI bleed 2. Aspiration pneumonia Patient was initially admitted in general medical floor for her upper GI bleed. Patient had a admission hemoglobin of 9.2 and Anemia workup was done. Oil Well Cable Tool Operator and ip counsel was on board. Patient was given 1 unit of blood transfusion following a hemoglobin of 7.3. On day 2 of admission patient developed severe left-sided chest pain with negative troponin and no EKG changes and hence, was transferred to telemetry floor for observation. Patient underwent the EGD scope which showed a small Clemencia Vane tear, duodenal polyp and a linear/shallow gastric ulceration. Oil Well Cable Tool Operator recommended to continue PPI, aspirin and hold Effient. Peoplesoft Analyst also discontinued dual antiplatelet therapy given the remote history of stenting several years ago. He suggested outpatient nuclear stress testing after discharge. On day 3 of admission patient developed cough with sputum production and increasing WBC count. Her chest x-ray showed right lower lobe opacity. A CAT scan was done which showed early focus of inflammatory disease in the left upper lobe. Pulmonology consult placed who suggested to start her on Augmentin 500 mg twice a day for 7 days for possible aspiration pneumonia given her history of upper GI bleed. Patient also had a drop in her hemoglobin from 8.4-7.9. Given her cardiac history 1 unit of blood transfusion was given. Repeat hemoglobin was 10 mg/dL on day of discharge. Patient advised to schedule a nuclear stress testing as outpatient. Chest x-ray Nonspecific triangular opacity at right lower lobe of the lung anteromedially, in the appropriate clinical setting, may represent pneumonia. Follow-up radiograph to document resolution is recommended. Chest CT 1. Early focus of inflammatory disease, apical segment of the left upper lobe. 2. Prominent cardiophrenic fat pads, right or the left. 3. Small rudimentary spleen. Complications: Anemia requiring Blood transfusion Allergies: Coded Allergies: Iodinated Contrast- Oral and IV Dye (RASH 12/07/17) atorvastatin (UNKNOWN 12/07/17) celecoxib (UNKNOWN 12/07/17) ciprofloxacin (UNKNOWN 12/07/17) erythromycin base (UNKNOWN 12/07/17) ezetimibe (From ZETIA) (muscle pain 10/01/16) rofecoxib (From VIOXX) (? 06/24/17) sucralfate (UNKNOWN 12/07/17) omeprazole (INTERACTS WITH OTHER MEDS 12/07/17) Uncoded Allergies: BANDAIDS (Intermediate, RASH 06/24/17) Significant Procedures: Endoscopic Disposition Summary Disposition Principal Diagnosis: Upper GI bleed, Additional Diagnosis: aspiration pneumonia Discharge Disposition: home or self care Discharge Instructions General Discharge Information Code Status: Full Code Patient's Diet: Heart healthy Patient's Activity: As tolerated Follow-Up Instructions/Appts: Please follow-up with your primary care physician within 1-2 weeks of discharge. Please follow-up with your ip counsel within 1-2 weeks of discharge. Please follow-up with the baker biscuit within 1-2 weeks of discharge. Please repeat complete blood count within a week and schedule nuclear stress test as outpatient. Medications at Discharge Discharge Medications: Stop taking the following medications: Prasugrel HCl (Effient) 10 MG TABLET ORAL DAILY Continue taking these medications: Aspirin (Children's Aspirin) 81 MG TAB.CHEW 1 Tablet ORAL DAILY Comments: Last Taken: 12/12/17 Time: 8:30AM Nebivolol HCl (Bystolic) 5 MG TABLET 1 Tablet ORAL DAILY Comments: Last Taken: 12/12/17 Time: 8:30AM Hydroxychloroquine Sulfate (Hydroxychloroquine Sulfate) 200 MG TABLET 2 Tablet ORAL DAILY Comments: NOT GIVEN IN HOSPITAL Levothyroxine Sodium (Levoxyl) 50 MCG TABLET 1 Tablet ORAL DAILY Comments: Last Taken: 12/12/17 Time: 6AM Alirocumab (Praluent Pen) 75 MG/ML PEN.INJCTR 75 Milligram INJECTABLE EVERY 2 WEEKS Comments: NOT GIVEN IN HOSPITAL Paroxetine HCl (Paroxetine HCl) 30 MG TABLET 30 Milligram ORAL DAILY Qty = 90 Comments: Last Taken: 12/11/17 Time: 10PM Start taking the following new medications: Augmentin (Augmentin 500-125 Tablet) 500 MG-125 MG TABLET 500 Milligram ORAL TWICE DAILY Qty = 11 No Refills Instructions: . Comments: Last Taken: 12/12/17 Time: 8:30AM Omeprazole (Omeprazole) 40 MG CAPSULE.DR 1 Capsule ORAL DAILY Qty = 30 No Refills Instructions: . Comments: Last Taken: 12/12/17 Time: 8:30AM Hydrocortisone (Hydrocortisone) 1 % CREAM..G. 1 Application On the skin TWICE DAILY as needed for skin allergy Qty = 30 No Refills Instructions: apply to affected area(s) Comments: NOT GIVEN IN HOSPITAL Copies To: Kemar FERNANDEZ,Tim Baer; Callum FERNANDEZ,Torin Colon MD Review Statement Documenting Attending: Leyda Wolfe MD Other Findings: Discharged in stable condition
[2017-12-10 22:21] VITALS: BP 126/58
[2017-12-11 06:16] VITALS: BP 142/62
--- NOTE | 2017-12-11 07:31 | PN- Housestaff ---
Harvinder FERNANDEZ,Leticia 12/11/17 0730: Subjective Follow-up For: GI bleed Complaints: no complaints Tele-Events Since Last Visit: Normal sinus rhythm Subjective: I saw the patient today at bedside. She says she slept well and offers no complaint. She says her cough is improved since yesterday. She denies chest pain, chest pressure, nausea, vomiting, dizziness, hematuria, bloody bowel movement. Review of Systems Constitutional: Reports: no symptoms. Cardiovascular: Reports: no symptoms. Gastrointestinal: Reports: no symptoms. Genitourinary: Reports: no symptoms. Musculoskeletal: Reports: no symptoms. Objective Last 24 Hrs of Vital Signs/I&O Vital Signs Date Time Temp Pulse Resp B/P B/P Pulse O2 O2 Flow FiO2 Mean Ox Delivery Rate 12/11 0616 98.4 92 20 142/62 93 Room Air 12/10 2221 98.6 94 20 126/58 95 Room Air 12/10 1457 100.0 96 18 110/52 98 Room Air 12/10 1400 72 20 110/52 Intake & Output 12/11 1600 12/11 0800 12/11 0000 Intake Total 110 350 Output Total Balance 110 350 Intake, IV 10 Intake, Oral 100 350 Number 0 Bowel Movements Physical Exam General Appearance: Alert, Oriented X3, Cooperative, No Acute Distress Cardiovascular: Regular Rate, Normal S1, Normal S2 Lungs: Clear to Auscultation Abdomen: Normal Bowel Sounds, Soft, No Tenderness Neurological: Strength at 5/5 X4 Ext, Normal Tone Current Medications: Current Medications Sig/Delaney Start time Last Medication Dose Route Stop Time Status Admin Acetaminophen 650 MG Q6P PRN 12/07 1315 AC 12/09 PO 2118 Amoxicillin/ 500 MG BID 12/10 1343 AC 12/11 Clavulanate Potassium PO 0927 Aspirin 81 MG DAILY 12/09 1000 AC 12/11 PO 0926 Docusate Sodium 100 MG DAILY 12/09 1000 AC 12/11 PO 0926 Hydromorphone HCl 0.6 MG Q4P PRN 12/07 1500 AC IV Levothyroxine Sodium 0.05 MG DAILY AC 12/08 0700 AC 12/11 PO 0609 Omeprazole 40 MG BID 12/08 2200 AC 12/11 PO 0926 Paroxetine HCl 30 MG AT BEDTIME 12/09 2200 AC 12/10 PO 2031 Polyethylene Glycol 17 GM DAILY 12/09 1000 AC 12/11 PO 0927 Last 24 Hrs of Lab/Boni Results Last 24 Hrs of Labs/Mics: Laboratory Tests 12/11/17 0613: CBC w Diff MAN DIFF ORDERED, RBC 2.52 L, MCV 95.5, MCH 31.3 H, RDW 15.7 H, MPV 8.4, Gran % 67.5, Lymphocytes % 16.2 L, Monocytes % 14.1 H, Eosinophils % 1.9, Basophils % 0.3, Absolute Granulocytes 10.7 H, Segmented Neutrophils 74, Absolute Lymphocytes 2.6, Lymphocytes 18 L, Monocytes 6, Absolute Monocytes 2.2 H, Eosinophils 2, Absolute Eosinophils 0.3, Absolute Basophils 0, Platelet Estimate VERIFIED BY SMEAR, Normocytic RBCs VERIFIED, Normochromic RBCs VERIFIED , PUBS MCHC 32.8 L Microbiology 12/10 2019 URINE ROUT: Urine Culture - RES 12/10 1450 BLOOD: Blood Culture - RECD 12/10 1445 BLOOD: Blood Culture - RECD 12/10 1350 LOWER RESP: Respiratory Culture - COLB 12/10 135 LOWER RESP: Gram Stain - COLB Assessment/Plan Assessment: Ms. Pittman is 67-year-old female with history of Coronary artery to on aspirin and Effient s/p stent placement in 2011, hypertension, hyperlipidemia, myocardial infarction, Sweet syndrome vasculitis, and SLE who was admitted for upper GI bleed evaluation. Problem list: 1. Upper GI bleed secondary to duodenal polyp, small Clemencia Vane tear. 2. History of SLE, Sweet syndrome 3. Cough with sputum production with x-ray finding of right lower lobe questionable pneumonia. * Patient presented with upper GI bleed and underwent the EGD scope, which showed small Clemencia SANDOVAL TEAR with gastric ulceration and duodenal polyp Patient was given 1 unit of blood transfusion. Her repeat hemoglobin today is 7.9. Given her coronary artery disease will transfuse 1 more unit of blood today upon discharge. Appreciate GI follow-up. * Patient Effient was discontinued as per cardiology. Continue aspirin. * Keep hemoglobin more than 8. * Patient cough has improved. She had a temperature of 100 at around 5 PM yesterday. Afebrile since then. We will continue Augmentin for 6 more days. Pulmonary consult follow-up appreciated * Cardiology follow-up appreciated. * maintain 2 large bore IVs at all times * GI prophylaxis-Prilosec 40 mg twice a day. Alps for DVT ppx regular diet FC Plan-1 unit of blood transfusion before discharge. Problem List: 1. GI bleed 2. Anemia Pain Ratin Pain Location: none Pain Goal: Remain pain free Pain Plan: tylenol Tomorrow's Labs & Rationales: none Aiden FERNANDEZ,Leyda 12/11/17 1343: Attending MD Review Statement Attending Statement Attending MD Statement: examined this patient, discuss w/resident/PA/FORENSIC PHOTOGRAPHER, agreed w/resident/PA/FORENSIC PHOTOGRAPHER, reviewed EMR data (avail), discussed with nursing, discussed with case mgmt, amended to note Attending Assessment/Plan: Patient seen and examined. Resting comfortably much in acute distress. No issues overnight. She reports mild nonproductive cough. Denies chest pain. Denies shortness of breath. She is afebrile hemodynamically stable. On examination she has good entry bilaterally with no added sounds. Heart sounds are regular. Abdomen soft and nontender and she has no peripheral edema. Laboratory data today shows very slight downward trend over hemoglobin however it is below 8. In view of her history of coronary artery disease we will transfuse 1 unit of PRBC. She is eager to leave the hospital today and will be discharged to follow-up with the gastroenterology service as an outpatient. We will recommend outpatient monitoring of her blood work. Her white cell count remains elevated. She remains afebrile hemodynamically stable. Poorly brought a urine cultures are currently negative. I did review her blood work from the outpatient. Last blood work I was able to find was in August and her white cell count was normal at that time. Her leukocytosis may be reactive following her bleed. She is being treated empirically for presumed pneumonia. This will need to be monitored as an outpatient. Recommendations: -Transfuse 1 unit of PRBC. -Patient may be discharged home today following blood transfusion. -She is to have her CBC repeated next week. -She is to complete 7 day course of Augmentin for presumed aspiration pneumonia. -Pathology report reviewed. 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 Negative for Helicobacter organisms. Patient to follow-up with the gastroenterology service as an outpatient.
[2017-12-11 08:09] LABS: ABSOLUTE BASOPHIL COUNT 0 /CUMM (0.0-0.2); ABSOLUTE EOSINOPHIL COUNT 0.3 /CUMM (0.0-0.7); ABSOLUTE GRANULOCYTE CT 10.7 /CUMM (1.4-6.5); ABSOLUTE LYMPH COUNT 2.6 /CUMM (1.2-3.4); ABSOLUTE MONOCYTE COUNT 2.2 /CUMM (0.10-0.60); BASOPHIL % 0.3 % (0.0-2.0); EOSINOPHIL % 1.9 % (0-5); GRANULOCYTE % 67.5 % (42.2-75.2); MEAN CORPUSCULAR HGB 31.3 PG (27.0-31.0); MEAN CORPUSCULAR HGB CONC 32.8 G/DL (33.0-37.0); MEAN CORPUSCULAR VOLUME 95.5 FL (81.0-99.0); MEAN PLATELET VOLUME 8.4 FL (7.4-10.4); PLATELET COUNT 279 /CUMM (130-400); RBC DISTRIBUTION WIDTH 15.7 % (11.5-14.5); RED BLOOD CELL CT 2.52 /CUMM (4.20-5.40); WHITE BLOOD CELL COUNT 15.9 /CUMM (4.8-10.8)
--- NOTE | 2017-12-11 08:49 | PN- Pulmonary ---
Subjective HPI/Critical Care Issues: Patient feels well without specific complaints. She has vague abdominal pain she's been unable to produce any sputum she denies shortness breath or chest pain Objective Current Medications: Current Medications Sig/Delaney Start time Last Medication Dose Route Stop Time Status Admin Acetaminophen 650 MG Q6P PRN 12/07 1315 AC 12/09 PO 2118 Amoxicillin/ 500 MG BID 12/10 1343 AC 12/10 Clavulanate Potassium PO 2030 Aspirin 81 MG DAILY 12/09 1000 AC 12/10 PO 0803 Docusate Sodium 100 MG DAILY 12/09 1000 AC 12/10 PO 0803 Hydromorphone HCl 0.6 MG Q4P PRN 12/07 1500 AC IV Levothyroxine Sodium 0.05 MG DAILY AC 12/08 0700 AC 12/11 PO 0609 Omeprazole 40 MG BID 12/08 2200 AC 12/10 PO 2031 Paroxetine HCl 30 MG AT BEDTIME 12/09 2200 AC 12/10 PO 2031 Polyethylene Glycol 17 GM DAILY 12/09 1000 AC 12/10 PO 0803 Vital Signs & I&O Last 24 Hrs of Vitals and I&O: Vital Signs Date Time Temp Pulse Resp B/P B/P Pulse O2 O2 Flow FiO2 Mean Ox Delivery Rate 12/11 0616 98.4 92 20 142/62 93 Room Air 12/10 2221 98.6 94 20 126/58 95 Room Air 12/10 1457 100.0 96 18 110/52 98 Room Air 12/10 1400 72 20 110/52 Intake & Output 12/11 1600 12/11 0800 12/11 0000 Intake Total 110 350 Output Total Balance 110 350 Intake, IV 10 Intake, Oral 100 350 Number 0 Bowel Movements Room air oxygen saturation 93-98% exam for chest shows clear lung gorman are no wheezes or crackles cardiac exam shows regular S1 and S2 murmur of aortic stenosis abdomen is soft with minimal tenderness. Impression/Plan Impression/Plan Impression/Plan: 67-year-old woman admitted with hematemesis acute blood loss anemia thought secondary to Clemencia-Bryant tear and small gastric ulcer has had increasing white count. At scan suggests possibility of the left upper lobe infiltrate possibly related to aspiration during her endoscopy. Mr. status appears stable patient has been started on empiric antibiotics. Recommendations: Fully culture including sputum. Evaluate for other sources of leukocytosis as she is status post procedure and biopsies. 2. Treatment for aspiration pneumonia can be instituted trending her white count. Patient should have follow-up CT scan to assure that this lesion resolves and other pulmonary nodules are followed up. Patient should have outpatient sleep study. Further pulmonary recommendations at this time she should be seen in the in the office for follow-up post discharge
[2017-12-11] MEDS ORDERED: AUGMENTIN 500-1 EACH PO ×2 (08:54→15:41)
--- NOTE | 2017-12-11 10:27 | PN- Cardiology ---
Subjective Subjective: Telemetry is scheduled to be removed. Sinus rhythm rate of 90. Objective Vital Signs and I&Os Vital Signs Date Time Temp Pulse Resp B/P B/P Pulse O2 O2 Flow FiO2 Mean Ox Delivery Rate 12/11 06 98.4 92 20 142/62 93 Room Air 12/10 2221 98.6 94 20 126/58 95 Room Air 12/10 1457 100.0 96 18 110/52 98 Room Air 12/10 1400 72 20 110/52 Intake & Output 12/11 1600 12/11 0800 12/11 0000 12/10 1600 12/10 0800 12/10 0000 Intake Total 110 350 500 240 500 Output Total Balance 110 350 500 240 500 Intake, IV 10 Intake, Oral 100 350 500 240 500 Number 0 Bowel Movements Physical Exam: A general exam patient appeared comfortable lying in bed Head normocephalic atraumatic Eyes sclera anicteric conjunctiva showed marked mild pallor extraocular muscles were normal Neck no jugular venous distention no thyroid masses no palpable nodes Chest lungs are clear bilaterally Heart regular rhythm with a grade 2-2/6 ejection systolic murmur Abdomen soft no organomegaly bowel sounds normal Extremities no clubbing cyanosis or edema Neurological no gross motor or sensory deficits Current Medications: Current Medications Sig/Delaney Start time Last Medication Dose Route Stop Time Status Admin Acetaminophen 650 MG Q6P PRN 12/07 1315 AC 12/09 PO 2118 Amoxicillin/ 500 MG BID 12/10 1343 AC 12/11 Clavulanate Potassium PO 0927 Aspirin 81 MG DAILY 12/09 1000 AC 12/11 PO 0926 Docusate Sodium 100 MG DAILY 12/09 1000 AC 12/11 PO 0926 Hydromorphone HCl 0.6 MG Q4P PRN 12/07 1500 AC IV Levothyroxine Sodium 0.05 MG DAILY AC 12/08 0700 AC 12/11 PO 0609 Omeprazole 40 MG BID 12/08 2199 AC 12/11 PO 0926 Paroxetine HCl 30 MG AT BEDTIME 12/09 2199 AC 12/10 PO 203 Polyethylene Glycol 17 GM DAILY 12/09 1000 AC 12/11 PO 0927 Results Last 48 Hrs of Labs/Mics: Laboratory Tests 12/11/1713: CBC w Diff MAN DIFF ORDERED, RBC 2.52 L, MCV 95.5, MCH 31.3 H, RDW 15.7 H, MPV 8.4, Gran % 67.5, Lymphocytes % 16.2 L, Monocytes % 14.1 H, Eosinophils % 1.9, Basophils % 0.3, Absolute Granulocytes 10.7 H, Segmented Neutrophils 74, Absolute Lymphocytes 2.6, Lymphocytes 18 L, Monocytes 6, Absolute Monocytes 2.2 H, Eosinophils 2, Absolute Eosinophils 0.3, Absolute Basophils 0, Platelet Estimate VERIFIED BY SMEAR, Normocytic RBCs VERIFIED, Normochromic RBCs VERIFIED , PUBS MCHC 32.8 L 12/10/17 0630: Anion Gap 11, Estimated GFR > 60, BUN/Creatinine Ratio 18.3, CBC w Diff NO MAN DIFF REQ, RBC 2.52 L, MCV 95.2, MCH 31.9 H, RDW 16.0 H, MPV 8.4, Gran % 67.1, Lymphocytes % 17.9 L, Monocytes % 12.1 H, Eosinophils % 2.4, Basophils % 0.5, Absolute Granulocytes 10.5 H, Absolute Lymphocytes 2.8, Absolute Monocytes 1.9 H, Absolute Eosinophils 0.4, Absolute Basophils 0.1, PUBS MCHC 33.5 Assessment/Plan Assessment/Plan In summary this 67-year-old female has the following problems #1. Chest pain. The chest pain was accompanied by abdominal pain. She has had an upper GI bleed with a Clemencia-Bryant tear. Secondary anemia. No myocardial infarction. EKG sinus rhythm with PVCs but no acute abnormalities #2. Coronary artery disease remote history of PCI in 2011. Currently only maintained on one antiplatelet agent. Aspirin has been maintained. Recent stress test was negative for ischemia. #3. Moderate aortic stenosis #4. Vasculitis #5. Hypertension #6. Hyperlipidemia Main issue at this time is GI related. We'll sign off. Please call us if needed. Continue telemetry? No
[2017-12-11 14:54] VITALS: BP 128/54
[2017-12-11 16:00] VITALS: BP 124/52
[2017-12-11 22:13] VITALS: BP 108/76
[2017-12-12 06:34] VITALS: BP 158/86
--- NOTE | 2017-12-12 07:07 | PN- Housestaff ---
Harvinder FERNANDEZ,Leticia 12/12/17 0706: Subjective Follow-up For: Upper GI bleed, aspiration pneumonia. Complaints: no complaints Tele-Events Since Last Visit: Normal sinus rhythm Subjective: Patient was seen and examined by me today. No overnight events. She offers no complaints. She denies fever, chills, cough, nausea, vomiting, abdominal pain, bloody bowel movement, chest pain. Review of Systems Constitutional: Reports: no symptoms. Cardiovascular: Reports: no symptoms. Respiratory: Reports: no symptoms. Gastrointestinal: Reports: no symptoms. Genitourinary: Reports: no symptoms. Musculoskeletal: Reports: no symptoms. Objective Last 24 Hrs of Vital Signs/I&O Vital Signs Date Time Temp Pulse Resp B/P B/P Pulse O2 O2 Flow FiO2 Mean Ox Delivery Rate 12/12 0800 Room Air 12/12 0634 98.3 92 20 158/86 94 Room Air 12/12 0000 Room Air 12/11 2213 98.7 86 20 108/76 94 Room Air 12/11 1600 98.8 96 20 124/52 97 Room Air 12/11 1531 99.8 12/11 1454 99.8 96 20 128/54 94 Room Air Intake & Output 12/12 1600 12/12 0800 12/12 0000 Intake Total 240 480 Output Total Balance 240 480 Intake, Oral 240 480 Physical Exam General Appearance: Alert, Oriented X3, Cooperative, No Acute Distress HEENT: PERRLA Neck: Supple, No JVD, No thryomegaly Cardiovascular: Regular Rate, Normal S1, Normal S2 Lungs: Normal Air Movement Abdomen: Soft, No Tenderness, No Hepatospenomegaly Neurological: Strength at 5/5 X4 Ext, Normal Tone, Sensation Intact Extremities: No Edema Current Medications: Current Medications Sig/Delaney Start time Last Medication Dose Route Stop Time Status Admin Acetaminophen 650 MG .STK-MED ONE 12/11 1528 DC PO 12/11 1529 Acetaminophen 650 MG Q6P PRN 12/07 1315 DCD 12/11 PO 2203 Amoxicillin/ 500 MG BID 12/10 1343 DCD 12/12 Clavulanate Potassium PO 0827 Aspirin 81 MG DAILY 12/09 1000 DCD 12/12 PO 0827 Docusate Sodium 100 MG DAILY 12/09 1000 DCD 12/12 PO 0827 Hydromorphone HCl 0.6 MG Q4P PRN 12/07 1500 DCD IV Levothyroxine Sodium 0.05 MG DAILY AC 12/08 0700 DCD 12/12 PO 0605 Omeprazole 40 MG BID 12/08 2199 DCD 12/12 PO 0827 Paroxetine HCl 30 MG AT BEDTIME 12/09 2199 DCD 12/11 PO 220 Polyethylene Glycol 17 GM DAILY 12/09 1000 DCD 12/12 PO 0828 Last 24 Hrs of Lab/Boni Results Last 24 Hrs of Labs/Mics: Laboratory Tests 12/12/17819: CBC w Diff NO MAN DIFF REQ, RBC 3.21 L, MCV 92.6, MCH 31.2 H, RDW 15.9 H, MPV 7.9, Gran % 74.1, Lymphocytes % 11.1 L, Monocytes % 11.4 H, Eosinophils % 2.9, Basophils % 0.5, Absolute Granulocytes 10.4 H, Absolute Lymphocytes 1.6, Absolute Monocytes 1.6 H, Absolute Eosinophils 0.4, Absolute Basophils 0.1, PUBS MCHC 33.7 Assessment/Plan Assessment: Ms. Pittman is 67-year-old female with history of Coronary artery to on aspirin and Effient s/p stent placement in 2011, hypertension, hyperlipidemia, myocardial infarction, Sweet syndrome vasculitis, and SLE who was admitted for upper GI bleed evaluation. Problem list: 1. Upper GI bleed secondary to duodenal polyp, small Clemencia Vane tear. 2. History of SLE, Sweet syndrome 3. Aspiration pneumonia * Patient presented with upper GI bleed and underwent the EGD scope, which showed small Clemencia SANDOVAL TEAR with gastric ulceration and duodenal polyp. Patient had 2 blood transfusion and repeat CBCs 10. * Patient Effient was discontinued as per cardiology. Continue aspirin. * Keep hemoglobin more than 8. * Patient pneumonia is improving well. Plan to send her home with 5 days of Augmentin 500 mg twice a day. * Cardiology follow-up appreciated. * maintain 2 large bore IVs at all times * GI prophylaxis-Prilosec 40 mg twice a day. Plan-to send him home with Augmentin 500 mg and omeprazole. Advised to follow up with gastroenterology and primary care physician. Alps for DVT ppx regular diet FC Problem List: 1. Anemia 2. GI bleed Pain Ratin Pain Location: none Pain Goal: Remain pain free Pain Plan: tylenol Tomorrow's Labs & Rationales: none Aiden FERNANDEZLeyda 12/12/17 0911: Attending MD Review Statement Attending Statement Attending MD Statement: examined this patient, discuss w/resident/PA/MAT ROLLER, agreed w/resident/PA/MAT ROLLER, reviewed EMR data (avail), discussed with nursing, discussed with case mgmt, amended to note Attending Assessment/Plan: Patient seen and examined. Resting comfortably not in any acute distress. She was scheduled for discharge yesterday after receiving a blood transfusion. Family however was unable to come in early to pick the patient's wishes to overnight. She remains well this morning with no complaints. Denies cough. Denies shortness of breath. Denies chest pain. She is afebrile hemodynamically stable. Lungs are clear to auscultation bilaterally. She has no peripheral edema. Labs on this morning shows significant improvement in her hemoglobin level following transfusion overnight. Her white cell count is currently trending downwards. Recommendations: -Patient is medically stable to be discharged home today. -Her leukocytosis likely reactive and is clinically improving. -She is to continue antibiotic course for her presumed aspiration pneumonia. -She is to follow-up with her [employer] driver service and primary care service next week as an outpatient for monitoring of her blood work.
[2017-12-12] MEDS ORDERED: OMEPRAZOLE40 M1 PO ×2 (08:00→08:01)
[2017-12-12] MEDS ORDERED: HYDROCORTISO453.6 G1 TOP (08:12)
[2017-12-12 08:40] LABS: ABSOLUTE BASOPHIL COUNT 0.1 /CUMM (0.0-0.2); ABSOLUTE EOSINOPHIL COUNT 0.4 /CUMM (0.0-0.7); ABSOLUTE GRANULOCYTE CT 10.4 /CUMM (1.4-6.5); ABSOLUTE LYMPH COUNT 1.6 /CUMM (1.2-3.4); ABSOLUTE MONOCYTE COUNT 1.6 /CUMM (0.10-0.60); BASOPHIL % 0.5 % (0.0-2.0); EOSINOPHIL % 2.9 % (0-5); GRANULOCYTE % 74.1 % (42.2-75.2); MEAN CORPUSCULAR HGB 31.2 PG (27.0-31.0); MEAN CORPUSCULAR HGB CONC 33.7 G/DL (33.0-37.0); MEAN CORPUSCULAR VOLUME 92.6 FL (81.0-99.0); MEAN PLATELET VOLUME 7.9 FL (7.4-10.4); PLATELET COUNT 341 /CUMM (130-400); RBC DISTRIBUTION WIDTH 15.9 % (11.5-14.5); WHITE BLOOD CELL COUNT 14.1 /CUMM (4.8-10.8)
[2017-12-12 08:46] LABS: HEMATOCRIT 29.7 % (37-47); RED BLOOD CELL CT 3.21 /CUMM (4.20-5.40)
--- NOTE | 2017-12-12 10:49 | PN- Cardiology ---
Subjective Subjective: The patient is awake, alert The events of the last 24 hours as well as telemetry were reviewed. Review of Systems: The review of systems is negative for chest pains, palpitations nor lightheadedness. The remainder of the 14 point review of systems is noncontributory with the exception of above. Objective Vital Signs and I&Os Vital Signs Date Time Temp Pulse Resp B/P B/P Pulse O2 O2 Flow FiO2 Mean Ox Delivery Rate 12/12 0800 Room Air 12/12 0634 98.3 92 20 158/86 94 Room Air 12/12 0000 Room Air 12/11 2213 98.7 86 20 108/76 94 Room Air 12/11 1600 98.8 96 20 124/52 97 Room Air 12/11 1531 99.8 12/11 1454 99.8 96 20 128/54 94 Room Air Intake & Output 12/12 1600 12/12 0800 12/12 0000 12/11 1600 12/11 0800 12/11 0000 Intake Total 240 480 500 110 350 Output Total Balance 240 480 500 110 350 Intake, IV 10 Intake, Oral 240 480 500 100 350 Number 0 Bowel Movements Physical Exam: General: Nontoxic, no apparent distress. HEENT: Sclera and conjunctiva within normal limits, without xanthelasmas. Neck: Carotids 2+ without bruits. Respiratory: Clear to auscultation, air movement is good, without accessory respiratory muscle use. Heart: Regular rate and rhythm, without murmurs, without JVD. Abdomen: Soft, nontender, no masses, normoactive bowel sounds. Extremities: Without clubbing, cyanosis, without edema. Neuro: Nonfocal exam, strength, 5 out of 5 Skin: Within normal limits without lesions. Psych: Mood and affect: Normal Current Medications: Current Medications Sig/Delaney Start time Last Medication Dose Route Stop Time Status Admin Acetaminophen 650 MG .STK-MED ONE 12/11 1528 DC PO 12/11 1529 Acetaminophen 650 MG Q6P PRN 12/07 1315 DCD 12/11 PO 2203 Amoxicillin/ 500 MG BID 12/10 1343 DCD 12/12 Clavulanate Potassium PO 0827 Aspirin 81 MG DAILY 12/09 1000 DCD 12/12 PO 08 Docusate Sodium 100 MG DAILY 12/09 1000 DCD 12/12 PO 08 Hydromorphone HCl 0.6 MG Q4P PRN 12/07 1500 DCD IV Levothyroxine Sodium 0.05 MG DAILY AC 12/08 0700 DCD 12/12 PO 0605 Omeprazole 40 MG BID 12/08 2199 DCD 12/12 PO 0827 Paroxetine HCl 30 MG AT BEDTIME 12/09 2199 DCD 12/11 PO 2203 Polyethylene Glycol 17 GM DAILY 12/09 1000 DCD 12/12 PO 0828 Results Last 48 Hrs of Labs/Mics: Laboratory Tests 12/12/17 0820: CBC w Diff NO MAN DIFF REQ, RBC 3.21 L, MCV 92.6, MCH 31.2 H, RDW 15.9 H, MPV 7.9, Gran % 74.1, Lymphocytes % 11.1 L, Monocytes % 11.4 H, Eosinophils % 2.9, Basophils % 0.5, Absolute Granulocytes 10.4 H, Absolute Lymphocytes 1.6, Absolute Monocytes 1.6 H, Absolute Eosinophils 0.4, Absolute Basophils 0.1, PUBS MCHC 33.7 12/11/17 0613: CBC w Diff MAN DIFF ORDERED, RBC 2.52 L, MCV 95.5, MCH 31.3 H, RDW 15.7 H, MPV 8.4, Gran % 67.5, Lymphocytes % 16.2 L, Monocytes % 14.1 H, Eosinophils % 1.9, Basophils % 0.3, Absolute Granulocytes 10.7 H, Segmented Neutrophils 74, Absolute Lymphocytes 2.6, Lymphocytes 18 L, Monocytes 6, Absolute Monocytes 2.2 H, Eosinophils 2, Absolute Eosinophils 0.3, Absolute Basophils 0, Platelet Estimate VERIFIED BY SMEAR, Normocytic RBCs VERIFIED, Normochromic RBCs VERIFIED , PUBS MCHC 32.8 L Assessment/Plan Assessment/Plan 67-year-old woman with a past medical history of coronary artery disease (status post remote stenting 2 in 2011), aortic stenosis (moderate severity), systemic lupus, hypertension, hyperlipidemia and Sweet syndrome vasculitis she presented to our hospital with symptoms of abdominal cramping and emesis of a coffee ground material with noted significant anemia. She has had symptoms of chest discomfort during her hospitalization. Anemia: The patient presents with anemia likely of a GI source. GI input is appreciated. Aspirin has been restarted. She will otherwise remain off of dual antiplatelet therapy. Coronary artery disease: The patient has known coronary artery disease with remote stenting several years ago. We will discontinue dual antiplatelet therapy and maintain aspirin only. She has had an outpatient nuclear stress testing which demonstrated no evidence of infarct or ischemia. Her symptoms of chest discomfort are multifactorial and recurrent, not consistent with an ischemic cardiac etiology. She will follow-up as an outpatient for stress testing Aortic stenosis: Moderate by recent testing. This will be followed up as an outpatient. Continue telemetry? No
== END 2017-12-12 10:13 | DRG 368 ==
LOC: ERH 10:14 → 2NB 12:19 → ERHI 12:19 → 1NO 12:19 → ENRESERV 14:33 → ENTRNSPT 15:54 → EDTRNSPTSTS 15:58 → 2NB 16:07 → EDTRNSPT 16:10 → CMPTRNSPT 16:23 → 2NB 12-08 09:52 → 1NO 12-08 20:44 → ENPENDDIS 12-12 07:24 → ENTRNSPT 12-12 10:09 → EDTRNSPT 12-12 10:10 → EDTRNSPTSTS 12-12 10:10 → EDTRNSPT 12-12 10:12 → 1NO 12-12 10:13 → CMPTRNSPT 12-12 10:22
PROVIDERS: Emergency Medicine; Student in an Organized Health Care Education/Training Program
PROC: 30233N1 Transfusion of Nonautologous Red Blood Cells into Peripheral Vein, Percutaneous Approach (ICD-10-PCS; principal; 2017-12-08)
PROC: 0DB68ZX Excision of Stomach, Via Natural or Artificial Opening Endoscopic, Diagnostic (ICD-10-PCS; 2017-12-08)
PROC: 0DD98ZX Extraction of Duodenum, Via Natural or Artificial Opening Endoscopic, Diagnostic (ICD-10-PCS; 2017-12-08)
DX: K22.6 Gastro-esophageal laceration-hemorrhage syndrome (principal); J69.0 Pneumonitis due to inhalation of food and vomit; M32.9 Systemic lupus erythematosus, unspecified; D62 Acute posthemorrhagic anemia; K92.2 Gastrointestinal hemorrhage, unspecified; I95.1 Orthostatic hypotension; L98.2 Febrile neutrophilic dermatosis [Sweet]; F17.200 Nicotine dependence, unspecified, uncomplicated; Z79.02 Long term (current) use of antithrombotics/antiplatelets; Z72.89 Other problems related to lifestyle; I35.0 Nonrheumatic aortic (valve) stenosis; K25.9 Gastric ulcer, unspecified as acute or chronic, without hemorrhage or perforation; K31.7 Polyp of stomach and duodenum; I25.10 Atherosclerotic heart disease of native coronary artery without angina pectoris; Z95.5 Presence of coronary angioplasty implant and graft; I10 Essential (primary) hypertension; E78.5 Hyperlipidemia, unspecified; I25.2 Old myocardial infarction; R01.1 Cardiac murmur, unspecified; K44.9 Diaphragmatic hernia without obstruction or gangrene
CPT/HCPCS: 1NSP; 36415; 71046; 82436; 86920; 87040; 87070; 87086; 88305; 88312; 93005; 93010; 96374; G0480; J2405; J3490; J7042; P9016